=== PATIENT | male | born 1970 | race American Indian/Alaskan Native ===

== ENCOUNTER 2016-08-16 10:29 | Inpatient (IN) | payer MEDICAID, OTHER ==
[2016-08-16] MEDS ORDERED: Sodium Chloride 0.9% 1,000 ML IV ONE (10:55)
[2016-08-16 11:30] LABS: BASO # 0.1 K/uL (0.0-0.2); BASO % 0.9 % (0.0-2.0); EOS # 0.2 K/uL (0.0-0.7); EOS % 3.1 % (0.0-4.0); HEMATOCRIT 43.8 % (35.0-51.0); LYMPH # 2.3 K/uL (1.0-4.3); LYMPH % 30.1 % (20.0-40.0); MEAN CELL VOLUME 91.6 fL (80.0-94.0); MEAN CORPUSCULAR HEMOGLOBIN 30.4 pg (27.0-31.0); MEAN CORPUSCULAR HGB CONC 33.2 g/dL (33.0-37.0); MEAN PLATELET VOLUME 9.4 fL (7.2-11.7); MONO # 0.6 K/uL (0.0-0.8); NRBC % 0.1 % (0.0-2.0); RED CELL DISTRIBUTION WIDTH 13.8 % (11.5-14.5); WHITE BLOOD COUNT 7.7 K/uL (4.8-10.8)
[2016-08-16 11:38] LABS: RBC URINE < 1 /hpf (0-3); URINE BILIRUBIN NEGATIVE (NEGATIVE); URINE BLOOD NEGATIVE (NEGATIVE); URINE COLOR Yellow (YELLOW); URINE GLUCOSE (UA) NORMAL (Normal); URINE KETONE TRACE mg/dL (NEGATIVE); URINE LEUKOCYTE ESTERASE NEG Leu/uL (Negative); URINE PROTEIN NEGATIVE (NEGATIVE); URINE UROBILINOGEN NORMAL mg/dL (0.2-1.0); WBC URINE 1 /hpf (0-5)
[2016-08-16 11:42] LABS: CHLORIDE 102 mmol/L (98-107)
[2016-08-16 11:44] LABS: POTASSIUM 3.9 mmol/L (3.6-5.2); SODIUM 139 mmol/L (132-148)
[2016-08-16 11:45] LABS: BILIRUBIN,TOTAL 0.5 mg/dL (0.2-1.3); CARBON DIOXIDE 28 mmol/L (22-30); GFR AFRICAN-AMERICAN > 60
[2016-08-16 11:46] LABS: ALB/GLOB RATIO 1.4 (1.0-2.1); ALKALINE PHOSPHATASE 72 U/L (38-126); ALT/SGPT 38 U/L (21-72); AST/SGOT 46 U/L (17-59); BLOOD UREA NITROGEN 10 mg/dL (9-20); GLUCOSE,RANDOM 77 mg/dL (75-110); TOTAL PROTEIN 7.2 g/dL (6.3-8.3)
[2016-08-16 11:47] LABS: ALCOHOL SERUM < 10 mg/dl (0-10)
--- NOTE | 2016-08-16 13:02 | C.PDOC ---
History Of Present Illness 45 y/o male, with history of depression and seizures, presents to ED with complaint of seizure this morning. Patient admits to recent alcohol and marijuana use. Patient reports feeling increasingly depressed and stressed recently. He expressed in the past that he wanted to hurt himself. Denies suicidal plan or attempt. Patient states that he is complaint with Keppra. Time Seen by Provider: 08/16/16 10:50 Chief Complaint (Nursing): Seizure History Per: Patient History/Exam Limitations: no limitations Recent Seizure Activity Began: Hours Ago: Number Of Seizures: One Length Of Seizures (Duration): Unknown Post-ictal Period: No Past Medical History Reviewed: Historical Data, Nursing Documentation, Vital Signs Vital Signs: Last Vital Signs Temp 97.9 F 08/16/16 10:39 Pulse 83 08/16/16 13:13 Resp 20 08/16/16 13:13 BP 106/64 08/16/16 13:13 Pulse Ox 99 08/16/16 13:13 - Medical History PMH: Depression, HIV, Seizures, Sexually Transmitted Disease - [facility] Procedures GROUP PSYCHOTHERAPY (05/11/15) INDIVIDUAL PSYCHOTHERAPY, COGNITIVE-BEHAVIORAL (05/11/15) Family History: States: Unknown Family Hx - Social History Hx Tobacco Use: Yes Hx Alcohol Use: Yes Hx Substance Use: No - Immunization History Hx Tetanus Toxoid Vaccination: No Hx Influenza Vaccination: No Hx Pneumococcal Vaccination: No Review Of Systems Except As Marked, All Systems Reviewed And Found Negative. Constitutional: Negative for: Fever, Chills Cardiovascular: Negative for: Chest Pain Respiratory: Negative for: Cough Gastrointestinal: Negative for: Vomiting Neurological: Positive for: Seizures Psych: Positive for: Depression, Suicidal ideation Physical Exam - Physical Exam Appears: Non-toxic, No Acute Distress, Other (depressed mood) Skin: Warm, Dry Head: Atraumatic, Normacephalic Eye(s): bilateral: Normal Inspection, EOMI Nose: Normal, No Flaring Oral Mucosa: Moist Tongue: Normal Appearing, No Bite Lips: Normal Appearing Teeth: Normal Dentition Throat: Normal, No Erythema, No Exudate Neck: Normal ROM Chest: Symmetrical Cardiovascular: Rhythm Regular Respiratory: Normal Breath Sounds, No Rales, No Rhonchi, No Wheezing Gastrointestinal/Abdominal: Soft, No Tenderness, No Guarding, No Rebound Back: Normal Inspection Extremity: Normal ROM, Capillary Refill (< 2 sec. ) Neurological/Psych: Oriented x3, Normal Speech Gait: Steady ED Course And Treatment - Laboratory Results Result Diagrams: 08/16/16 11:07 08/16/16 11:07 Lab Interpretation: No Acute Changes ECG: Interpreted By Me ECG Rhythm: Sinus Rhythm ECG Interpretation: No Acute Changes Interpretation Of ECG: mild right axis deviation Rate From EC (bpm) O2 Sat by Pulse Oximetry: 95 (RA) Pulse Ox Interpretation: Normal Medical Decision Making Medical Decision Making: Patient reports depression and seizure. Patient is alert and oriented has no obvious signs of trauma or injury and not postictal. bag shop worker Jeevan at bedside and states patient is suicidal. Will place on 1:1 Plan: * Labs * EKG * crisis eval Progress: Crisis aware of patient. Pt placed on 1:1 observation in ER. Labs ordered and reviewed. In my clinical judgment patient is medically cleared and stable for psychiatric admission. home support worker contacted for evaluation. As per CW patient is to be admitted to Dr Bradshaw Disposition - Disposition Disposition: HOME/ ROUTINE Disposition Time: 13:30 Condition: STABLE - POA Present On Arrival: None - Clinical Impression Clinical Impression: Seizure disorder, Depression, Substance abuse - PA / [employer] F[employer] / Resident Statement MD/DO has reviewed & agrees with the documentation as recorded. - Scribe Statement The provider has reviewed the documentation as recorded by the John Anderson Provider Scribe Attestation: All medical record entries made by the Scribe were at my direction and personally dictated by me. I have reviewed the chart and agree that the record accurately reflects my personal performance of the history, physical exam, medical decision making, and the department course for this patient. I have also personally directed, reviewed, and agree with the discharge instructions and disposition. Decision To Admit - Pt Status Changed To: Hospital Disposition Of: Inpatient - Admit Certification Admit to Inpatient:: After my assessment, the patient will require hospitalization for at least two midnights. This is because of the severity of symptoms shown, intensity of services needed, and/or the medical risk in this patient being treated as an outpatient. - InPatient: Physician Admission Certification: I certify that this patient requires 2 or more midnights of care for the following reason:: Patient to be admitted for depression, h.o seizure and substance abuse - . Bed Request Type: Psychiatry Admitting Physician: Som Bradshaw Patient Diagnosis: Seizure disorder, Depression, Substance abuse
[2016-08-16 13:33] VITALS: O2SAT 95
[2016-08-17] MEDS ORDERED: Ergocalciferol 50,000 Intl Units Cap PO SCH ×2 (10:00→14:30)
[2016-08-17] MEDS ORDERED: Vitamin B Complex/Vitamin C Tab PO SCH (10:00)
[2016-08-17] MEDS ORDERED: Emtricitabine-Tenofovir 200 mg-300 mg Tab PO SCH (10:00)
[2016-08-17 13:02] VITALS: RESP 19; TEMP 98
--- NOTE | 2016-08-17 15:36 | PCM.PSYCH ---
Initial Psychiatric Evaluation - Initial Psychiatric Evaluation Type of Admission: Voluntary Legal Status: Capacity Chief Complaint (in patient's own words): I was feeling depressed and suicidal History of Present Illness and Precipitating Events: This is a 45 years old male who is a currently homeless and unemployed, came to the hospital after abusing PCP, depressed mood and suicidal ideation. Patient reports a long history of abusing PCP, cocaine and depression. Patient denies any history of inpatient psychiatric hospitalization and denies any follow-up with any psychiatrist. Patient reports that yesterday he abused more than 20 to cocaine mixed with PCP, became increasingly depressed and developed suicidal ideation, so came to the hospital to get help. Patient reports of depressed, and irritable mood. Reports feelings of hopelessness and helplessness and poor appetite. He also reports of racing of thoughts and flight of ideas and poor concentration. However he denies any auditory hallucinations, visual hallucinations or any delusions. Current Medications: Active Medications Generic Name Dose Route Start Last Admin Trade Name Freq PRN Reason Stop Dose Admin Benztropine Mesylate 2 mg 08/16/16 17:19 Cogentin PO Q6 PRN Extra Pyramidal Symptoms Dicyclomine HCl 10 mg 08/16/16 17:19 Bentyl PO Q6 PRN Muscle spasm Diphenhydramine HCl 50 mg 08/16/16 17:19 Benadryl PO Q6 PRN Extra Pyramidal Symptoms Emtricitabine/Tenofovir 1 tab 08/17/16 10:00 08/17/16 11:13 Truvada 200 Mg-300 Mg PO 1 tab DAILY ARIADNA Administration Ergocalciferol 1 cap 08/17/16 14:30 08/17/16 15:07 Drisdol 50,000 Intl Units Cap PO Not Given QWK ARIADNA Haloperidol 5 mg 08/16/16 17:19 Haldol PO Q8 PRN Moderate Agitation Haloperidol Lactate 5 mg 08/16/16 17:19 Haldol IM Q8 PRN Moderate Agitation Levetiracetam 500 mg 08/16/16 18:00 08/17/16 11:08 Keppra PO 500 mg BID ARIADNA Administration Quetiapine Fumarate 100 mg 08/16/16 22:00 08/16/16 21:35 Seroquel PO 100 mg HS ARIADNA Administration Raltegravir 400 mg 08/16/16 18:00 08/17/16 11:13 Isentress PO 400 mg BID ARIADNA Administration Trazodone HCl 100 mg 08/16/16 22:00 08/16/16 21:35 Desyrel PO 100 mg HS ARIADNA Administration Vitamin B Complex/Vitamin C 1 tab 08/17/16 10:00 08/17/16 11:13 Berocca PO 1 tab DAILY ARIADNA Administration Past Psychiatric History - Past Psychiatric History Previous Treatment History: None Pertinent Medical Hx (Current Medical&Sleep Prob, Allergies): Allergies Allergy/AdvReac Type Severity Reaction Status Date / Time No Known Allergies Allergy Verified 04/02/16 10:56 Cholecalciferol [Vitamin D 1000 IU] 5,000 iu PO DAILY #0 tab 05/14/15 Naproxen Sodium [Naproxen Sodium ER] 375 mg PO BID PRN 01/20/16 traZODone [Desyrel] 50 mg PO DAILY 01/20/16 Emtricitabine/Tenofovir (Tdf) [Truvada 100 mg-150 mg Tablet] 1 each PO DAILY Levetiracetam [Keppra] 1 tab PO BID #60 tablet 05/14/16 levETIRAcetam [Keppra] 500 mg PO BID 05/14/16 Review of Systems - Review of Systems All systems: reviewed and no additional remarkable complaints except - Psychiatric Psychiatric: Anxiety, Irritability, Suicidal Ideation Mental Status Examination - Personal Presentation Personal Presentation: Looks stated age - Affect Affect: Constricted, Depressed - Motor Activity Motor Activity: Calm - Reliability in Providing Information Reliability in Providing Information: Good - Speech Speech: Organized - Mood Mood: Depressed, Anxious - Formal Thought Process Formal Thought Process: No Impairment - Obsessions/Compulsions Obsessions: No Compulsions: No - Cognitive Functions Orientation: Person, Place, Situation, Time Sensorium: Alert Attention/Concentration: Attentive Abstract Thinking: Harold Estimate of Intelligence: Below average Judgement: Imparied, as evidence by: Poor judgement, Imparied, as evidence by: Lack of insight into illness - Risk Risk: Diminished functioning - Strength & Assets Inventory Strength & Assets Inventory: Cooperative DSM 5 DX - DSM 5 DSM 5 Diagnosis: Bipolar disorder mixed severe without psychotic features PCP use disorder severe Cocaine use disorder moderate - Recommended/Plan of Treatment Treatment Recommendations and Plan of Treatment: Bipolar disorder mixed severe without psychotic features CBT Psychoeducation Supportive therapy, group therapy, individual therapy Keppra 500 mg by mouth twice a day Trazodone 50 mg by mouth daily at bedtime Seroquel 100 mg by mouth daily at bedtime PCP use disorder severe Monitor signs and symptoms Use NV for abstinence Cocaine use disorder moderate Monitor signs and symptoms Use NV for abstinence - Smoking Cessation Smoking Cessation Initiated: No
[2016-08-17 15:50] VITALS: BP 109/64; PULSE 65
--- NOTE | 2016-08-18 22:40 | PCM.PYCHDC ---
Mental Status Examination - Mental Status Examination Orientation: Person, Place, Situation, Time Memory: Intact Mood: Neutral Affect: Constricted Speech: Soft Attention: WNL Concentration: WNL Association: WNL Fund of Knowledge: WNL Formal Thought Process: No Impairment Description of patient's judgement and insight: good, fair Psychotic Thoughts and Behaviors: denies any AVH Suicidal Ideation: No Current Homicidal Ideation?: No Discharge Summary - Discharge Note Reason for Hospitalization: This is a 45 years old male who is a currently homeless and unemployed, came to the hospital after abusing PCP, depressed mood and suicidal ideation. Patient reports a long history of abusing PCP, cocaine and depression. Patient denies any history of inpatient psychiatric hospitalization and denies any follow-up with any psychiatrist. Patient reports that yesterday he abused more than 20 to cocaine mixed with PCP, became increasingly depressed and developed suicidal ideation, so came to the hospital to get help. Patient reports of depressed, and irritable mood. Reports feelings of hopelessness and helplessness and poor appetite. He also reports of racing of thoughts and flight of ideas and poor concentration. However he denies any auditory hallucinations, visual hallucinations or any delusions. Consultations:: List each consultation separately and include: 1. Reason for request. 2. Findings. 3. Follow-up Summary of Hospital Course include:: 1. Description of specific treatment plan utilized for patients during their course of treatmen. 2. Summarize the time- course for resolution of acute symptoms and/or regressed behaviors. 3. Describe issues identified and worked on during hospitalization. 4. Describe medication utilized. 5. Describe medical problems identified and treated. 6. Reassessment of suicide risk Summary of Hospital Course: During the course of his stay, patient (pt) started progressively improving and he no longer remained irritable, depressed, and agitated. His mood was improved and he started attending groups and meetings and started socializing. However, he signed a 48 hours notice and requested to be discharged. Patient denied any feelings of hopelessness, helplessness, and worthlessness, denied any problem with the sleep or appetite, denied suicidal ideation or homicidal ideation. Pt denied any auditory or visual hallucinations. He reported improvement in the withdrawal symptoms Some changes were made in his current medications and patient was discharged on following medications. He tolerated these medications very well and denied any side effects. - Final Diagnosis (DSM 5) Condition upon Discharge: STABLE DSM 5: Bipolar disorder mixed severe without psychotic features PCP use disorder severe Cocaine use disorder moderate Disposition: HOME/ ROUTINE Follow-up Treatment Plan: Education: Pt was educated and counseled about the risks and benefits of taking and not taking medications. Pt was educated and counseled about the risks of drinking and abusing drugs. Pt was educated and counseled to go to the ER or call 911 if pt develop suicidal ideation or homicidal ideation, worsening of symptoms or severe side effects of the meds. Prescriptions/Medication Reconciliation: levETIRAcetam [Keppra] 500 mg PO BID #60 tab QUEtiapine [Seroquel] 100 mg PO HS #30 tab - Smoking Cessation Smoking Cessation Medication prescribed: No - Antipsychotic Medications Pt discharged on 2 or more routine antipsychotic medications: No
--- NOTE | 2016-08-21 18:16 | CARD ---
APPROVED REPORT EKG Measurement Heart [id number] <Conclusion> Normal sinus rhythm Normal ECG
== END 2016-08-18 11:40 | disposition home or self-care (01) | DRG 430 ==
LOC: C.ER 10:29 → C.5E 13:28
PROVIDERS: ADMIT Psychiatry & Neurology Psychiatry; ATTEND Psychiatry & Neurology Psychiatry
PROC: GZHZZZZ Group Psychotherapy (ICD-10-PCS; principal; 2016-08-16)
PROC: GZ56ZZZ Individual Psychotherapy, Supportive (ICD-10-PCS; 2016-08-16)
DX: F31.63 Bipolar disorder, current episode mixed, severe, without psychotic features (principal); R45.851 Suicidal ideations; G40.909 Epilepsy, unspecified, not intractable, without status epilepticus; F14.90 Cocaine use, unspecified, uncomplicated; F16.10 Hallucinogen abuse, uncomplicated; Z87.891 Personal history of nicotine dependence; Z59.0 Homelessness; Z21 Asymptomatic human immunodeficiency virus [HIV] infection status

== ENCOUNTER 2016-09-27 15:10 | Emergency (ER) | payer MEDICAID, OTHER ==
[2016-09-27 15:23] VITALS: RESP 18; TEMP 98.7
[2016-09-27] MEDS ORDERED: Sodium Chloride 0.9% 1,000 ML IV ONE (15:25)
[2016-09-27 15:44] LABS: BASO # 0.1 K/uL (0.0-0.2); EOS # 0.2 K/uL (0.0-0.7); EOS % 2.2 % (0.0-4.0); HEMATOCRIT 43.9 % (35.0-51.0); LYMPH # 2.1 K/uL (1.0-4.3); LYMPH % 19.3 % (20.0-40.0); MEAN CELL VOLUME 93.1 fL (80.0-94.0); MEAN CORPUSCULAR HEMOGLOBIN 30.5 pg (27.0-31.0); MEAN CORPUSCULAR HGB CONC 32.8 g/dL (33.0-37.0); MEAN PLATELET VOLUME 10.3 fL (7.2-11.7); MONO # 0.9 K/uL (0.0-0.8); MONO % 8.6 % (0.0-10.0); RED CELL DISTRIBUTION WIDTH 14.7 % (11.5-14.5); WHITE BLOOD COUNT 10.7 K/uL (4.8-10.8)
[2016-09-27 16:03] LABS: CHLORIDE 111 mmol/L (98-107)
[2016-09-27 16:04] LABS: RBC URINE 5 /hpf (0-3); URINE BILIRUBIN NEGATIVE (NEGATIVE); URINE BLOOD 1+ (NEGATIVE); URINE COLOR Yellow (YELLOW); URINE GLUCOSE (UA) NORMAL (Normal); URINE HYALINE CAST 0-2 /lpf (0-2); URINE KETONE NEGATIVE (NEGATIVE); URINE LEUKOCYTE ESTERASE NEG Leu/uL (Negative); URINE PROTEIN 1+ mg/dL (NEGATIVE); URINE UROBILINOGEN NORMAL mg/dL (0.2-1.0); WBC URINE 3 /hpf (0-5)
[2016-09-27 16:04] LABS: POTASSIUM 4.3 mmol/L (3.6-5.2); SODIUM 143 mmol/L (132-148)
[2016-09-27 16:06] LABS: ALB/GLOB RATIO 1.2 (1.0-2.1); ALKALINE PHOSPHATASE 67 U/L (38-126); AST/SGOT 43 U/L (17-59); BILIRUBIN,TOTAL 0.8 mg/dL (0.2-1.3); BLOOD UREA NITROGEN 10 mg/dL (9-20); CARBON DIOXIDE 22 mmol/L (22-30); GFR AFRICAN-AMERICAN > 60; TOTAL PROTEIN 7.3 g/dL (6.3-8.3)
[2016-09-27 16:07] LABS: ALCOHOL SERUM < 10 mg/dl (0-10); ALT/SGPT 20 U/L (21-72); CALCIUM 8.5 mg/dl (8.6-10.4); GLUCOSE,RANDOM 74 mg/dL (75-110); MAGNESIUM 2.3 mg/dL (1.6-2.3)
[2016-09-27] MEDS ORDERED: levETIRAcetam 500 MG in Sodium Chloride 0.9% 100 ML IVPB STA (19:23)
[2016-09-27] MEDS ORDERED: Sodium Chloride 0.9% 100 ML ONE (19:46)
[2016-09-27] MEDS ORDERED: Ketamine 50 mg/ml Inj (10 ml) ONE (19:46)
--- NOTE | 2016-09-27 20:49 | CT ---
EXAM: CT Head Without Intravenous Contrast CLINICAL HISTORY: 45 years old, male; Signs and symptoms; Altered mental status/memory loss and syncope and collapse; Additional info: Seizures, AMS TECHNIQUE: Axial computed tomography images of the head/brain without intravenous contrast. This CT exam was performed using one or more of the following dose reduction techniques: automated exposure control, adjustment of the mA and/or kV according to patient size, and/or use of iterative reconstruction technique. EXAM DATE/TIME: 09/27/2016 7:54 PM COMPARISON: Prior images are not available for review. Correlation is made with a reports dated 01/20/16 and 04/02/16 FINDINGS: Brain: There is prominence of sulci, gyri and ventricles. There is no midline shift. There are no intra-axial or extra axial mass lesions or areas of hemorrhage. There is right temporal parietal encephalomalacia. There is a coarse calcification in the left basal ganglia. Lawson-white differentiation is maintained. Ventricles: See above Bony structures: There is an old right parietal craniotomy defect. Soft tissues: unremarkable Sinuses: There is no acute sinusitis. Ears and mastoids: Middle ears and mastoids unremarkable. Orbits: Orbital contents are unremarkable. IMPRESSION: Prior right craniotomy with right temporoparietal encephalomalacia, mild atrophy, no acute intracranial abnormality
[2016-09-27 21:08] VITALS: O2SAT 99
--- NOTE | 2016-09-27 22:14 | C.PDOC ---
Time Seen by Provider: 09/27/16 15:25 Chief Complaint (Nursing): Altered Mental Status History Per: Patient, EMS History/Exam Limitations: Clinical Condition Onset Of Symptoms: Cannot Confirm Onset (today) Current Symptoms Are (Timing): Still Present Usual Baseline: Alert Oriented Exacerbating Factor(s): Drug Use Severity: Moderate Additional History Per: Prior Records Associated Symptoms: Seizure, Disoriented, Confused Past Medical History Reviewed: Historical Data, Nursing Documentation, Vital Signs Vital Signs: Last Vital Signs Temp 98.7 F 09/27/16 18:43 Pulse 64 09/27/16 20:49 Resp 18 09/27/16 20:49 BP 135/84 09/27/16 20:49 Pulse Ox 99 09/27/16 22:15 - Medical History PMH: Depression, HIV, Seizures, Sexually Transmitted Disease - [facility] Procedures GROUP PSYCHOTHERAPY (08/16/16) INDIVIDUAL PSYCHOTHERAPY, COGNITIVE-BEHAVIORAL (05/11/15) INDIVIDUAL PSYCHOTHERAPY, SUPPORTIVE (08/16/16) Family History: States: Unknown Family Hx - Social History Hx Tobacco Use: Yes Hx Alcohol Use: Yes Hx Substance Use: Yes (OBTAINED FROM HISTORY) - Immunization History Hx Tetanus Toxoid Vaccination: No Hx Influenza Vaccination: No Hx Pneumococcal Vaccination: No Review Of Systems Review Of Systems: ROS cannot be obtained secondary to pt's inabilty to answer questions. Physical Exam - Physical Exam Appears: Confused Skin: Normal Color, Warm, Dry Head: Atraumatic, Normacephalic Eye(s): bilateral: PERRL (dilated) Neck: Normal ROM, No Midline Cervical Tenderness, No Step Off Deformity, Supple Cardiovascular: Rhythm Regular Respiratory: Normal Breath Sounds, No Accessory Muscle Use Gastrointestinal/Abdominal: Soft Extremity: Normal ROM, No Deformity Neurological/Psych: Inappropriate Response To Command, Other (Moving all extremities) ED Course And Treatment - Laboratory Results Result Diagrams: 09/27/16 15:38 09/27/16 15:38 Lab Interpretation: No Acute Changes O2 Sat by Pulse Oximetry: 99 Pulse Ox Interpretation: Normal - CT Scan/US CT head Other Rad Studies (CT/US): Read By Radiologist, Radiology Report Reviewed CT/US Interpretation: IMPRESSION: Prior right craniotomy with right temporoparietal encephalomalacia, mild. atrophy, no acute intracranial abnormality Progress Note: Pt is now AAOx3 and wants to go home. Reassessment Condition: Improved Progress - Interventions Interventions:: Observation, Intravenous fluid - Medications Administered Intravenous: Other (Ativan. Keppra.) - Data Reviewed Data Reviewed: Lab, Diagnostic imaging, Old records - Patient Status Patient status: Mostly improved - Continuity of Care Discussed patient case with:: Patient, Family-HIPPA compliant, ED Nurse - Patient Plan Patient Plan: Discharge, F/U with PCP, Continue present meds Disposition Counseled Patient/Family Regarding: Studies Performed, Diagnosis, Need For Followup - Disposition Disposition: HOME/ ROUTINE Disposition Time: 22:36 Condition: IMPROVED Additional Instructions: Avoid using illicit drugs. Take your medications as prescribed. Follow up with your doctor within 1-2 days. Return to the ER if you develop worsening of symptoms or if you have any other concerns. Instructions: Recurrent Seizures in Adults (ED), Polysubstance Abuse (ED) - Clinical Impression Clinical Impression: Seizure disorder, Drug abuse
[2016-09-27 22:37] VITALS: BP 110/77; PULSE 77
== END 2016-09-27 22:49 | disposition home or self-care (01) ==
LOC: C.ER 15:10
DX: G40.909 Epilepsy, unspecified, not intractable, without status epilepticus (principal); F19.10 Other psychoactive substance abuse, uncomplicated
CPT/HCPCS: 70450; 80053; 80185; 80320; 80324; 80345; 80346; 80349; 80353; 80358; 80361; 81001; 82948; 83735; 83992; 85025; 96374; 99285; J1953; J2060

== ENCOUNTER 2016-09-28 01:32 | Emergency (ER) | payer OTHER ==
--- NOTE | 2016-09-28 01:56 | C.PDOC ---
History Of Present Illness Patient presents to the ED after having a seizure while at home prior to arrival. Patient's sister states she heard a noise and found the patient on the floor having a seizure. Patient has a known history of seizures,on medications for seizures. Pt was seen in the ED yesterday ,had a negative CT scan , and was positive for PCP and cocaine . Time Seen by Provider: 09/28/16 01:56 Chief Complaint (Nursing): Seizure History Per: Patient History/Exam Limitations: no limitations Recent Seizure Activity Began: Just Before Arrival Number Of Seizures: One Length Of Seizures (Duration): Unknown Quality Of Seizure: Generalized Post-ictal Period: Duration Unknown Severity: None Pain Scale Rating Of: 0 Recent travel outside of the [place]: No Additional History Per: Family (sister ) Past Medical History Reviewed: Historical Data, Nursing Documentation, Vital Signs Vital Signs: Last Vital Signs Temp 98.7 F 09/28/16 01:35 Pulse 75 09/28/16 01:35 Resp 13 09/28/16 01:35 BP 109/70 09/28/16 01:35 Pulse Ox 98 09/28/16 03:27 - Medical History PMH: Depression, HIV, Seizures, Sexually Transmitted Disease Denies: Chronic Kidney Disease - [facility] Procedures GROUP PSYCHOTHERAPY (08/16/16) INDIVIDUAL PSYCHOTHERAPY, COGNITIVE-BEHAVIORAL (05/11/15) INDIVIDUAL PSYCHOTHERAPY, SUPPORTIVE (08/16/16) Family History: States: No Known Family Hx - Social History Hx Tobacco Use: Yes Hx Alcohol Use: Yes Hx Substance Use: Yes (OBTAINED FROM HISTORY) - Immunization History Hx Tetanus Toxoid Vaccination: No Hx Influenza Vaccination: No Hx Pneumococcal Vaccination: No Review Of Systems Constitutional: Negative for: Fever, Chills Eyes: Negative for: Vision Change ENT: Negative for: Ear Pain, Ear Discharge Cardiovascular: Negative for: Chest Pain, Palpitations Respiratory: Negative for: Cough, Shortness of Breath Gastrointestinal: Negative for: Nausea, Vomiting, Abdominal Pain, Diarrhea Musculoskeletal: Negative for: Back Pain Skin: Negative for: Rash, Lesions, Bruising Neurological: Positive for: Seizures. Negative for: Headache Psych: Negative for: Anxiety Physical Exam - Physical Exam Appears: Non-toxic, No Acute Distress, Other (No evidence of trauma ) Skin: Warm, Dry Head: Normacephalic, No Swelling, Other (No crepitus ) Eye(s): bilateral: Normal Inspection, PERRL, EOMI Ear(s): Bilateral: Normal Oral Mucosa: Moist Tongue: Normal Appearing, No Bite Neck: Trachea Midline, Supple Chest: Symmetrical, No Deformity Cardiovascular: Rhythm Regular Respiratory: No Rales, No Rhonchi, No Wheezing Gastrointestinal/Abdominal: Soft, No Tenderness, No Distention, No Guarding, No Rebound Extremity: Normal ROM, No Tenderness Extremity: Bilateral: Normal Color And Temperature Neurological/Psych: Oriented x3, Normal Speech Gait: Unable To Assess ED Course And Treatment - Laboratory Results Result Diagrams: 09/28/16 02:14 09/28/16 02:14 O2 Sat by Pulse Oximetry: 98 (room air ) Pulse Ox Interpretation: Normal Progress Note: 3:25 am pt sith seizure. pulled iv out 2 mg im ativan given Disposition Counseled Patient/Family Regarding: Studies Performed, Diagnosis - Disposition Disposition Time: 01:56 Condition: FAIR - Clinical Impression Clinical Impression: Cocaine use, Substance abuse, Seizure - Scribe Statement The provider has reviewed the documentation as recorded by the Scribdalia Mattson All medical record entries made by the Leslieibe were at my direction and personally dictated by me. I have reviewed the chart and agree that the record accurately reflects my personal performance of the history, physical exam, medical decision making, and the department course for this patient. I have also personally directed, reviewed, and agree with the discharge instructions and disposition. Physician Patient Turnover Patient Signed Over To: Kayla Michelle Handoff Comments: pending re-evaluation and disposition
[2016-09-28] MEDS ORDERED: Sodium Chloride 0.9% 1,000 ML IV ONE (01:57)
[2016-09-28] MEDS ORDERED: Sodium Chloride 0.9% 1,000 ML ONE (02:09)
[2016-09-28 02:18] LABS: BASO # 0.1 K/uL (0.0-0.2); BASO % 0.9 % (0.0-2.0); EOS # 0.1 K/uL (0.0-0.7); EOS % 0.9 % (0.0-4.0); HEMOGLOBIN 13.8 g/dL (12.0-18.0); LYMPH # 2.4 K/uL (1.0-4.3); LYMPH % 18.3 % (20.0-40.0); MEAN CELL VOLUME 91.9 fL (80.0-94.0); MEAN CORPUSCULAR HEMOGLOBIN 30.3 pg (27.0-31.0); MEAN PLATELET VOLUME 10.1 fL (7.2-11.7); MONO # 1.1 K/uL (0.0-0.8); MONO % 8.3 % (0.0-10.0); NEUT # 9.2 K/uL (1.8-7.0); NEUT % 71.6 % (50.0-75.0); RBC 4.55 Mil/uL (4.40-5.90); RED CELL DISTRIBUTION WIDTH 14.2 % (11.5-14.5); WHITE BLOOD COUNT 12.9 K/uL (4.8-10.8)
[2016-09-28 02:32] LABS: ALBUMIN 4.1 g/dL (3.5-5.0)
[2016-09-28 02:34] LABS: GFR AFRICAN-AMERICAN > 60; GFR NON-AFRICAN AMERICAN > 60
[2016-09-28 02:35] LABS: ALB/GLOB RATIO 1.2 (1.0-2.1); ALT/SGPT 36 U/L (21-72); AST/SGOT 35 U/L (17-59); BLOOD UREA NITROGEN 13 mg/dL (9-20)
[2016-09-28 08:00] VITALS: TEMP 98.1
[2016-09-28 08:32] LABS: URINE BILIRUBIN NEGATIVE (NEGATIVE); URINE BLOOD NEGATIVE (NEGATIVE); URINE CLARITY Clear (Clear); URINE COLOR Yellow (YELLOW); URINE GLUCOSE (UA) NORMAL (Normal); URINE LEUKOCYTE ESTERASE NEG Leu/uL (Negative); URINE NITRATE NEGATIVE (NEGATIVE); URINE PROTEIN NEGATIVE (NEGATIVE); URINE UROBILINOGEN NORMAL mg/dL (0.2-1.0)
[2016-09-28 08:51] LABS: BARBITURATES, UR NEGATIVE (NEGATIVE); BENZODIAZEPINES, UR NEGATIVE (NEGATIVE)
[2016-09-28 09:36] LABS: OPIATES, UR NEGATIVE (NEGATIVE)
[2016-09-28 09:56] VITALS: BP 104/68; PULSE 73; RESP 17; O2SAT 99
[2016-09-28 10:00] LABS: PHENCYCLIDINE, UR POSITIVE (NEGATIVE)
== END 2016-09-28 10:17 | disposition home or self-care (01) ==
LOC: C.ER 01:32
DX: G40.909 Epilepsy, unspecified, not intractable, without status epilepticus (principal); F14.10 Cocaine abuse, uncomplicated
CPT/HCPCS: 80053; 80320; 80324; 80345; 80346; 80349; 80353; 80358; 80361; 81001; 82948; 83992; 85025; 92610; 96360; 96372; 99285; G8996; G8997; G8998; J2060; J7040

== ENCOUNTER 2017-09-02 11:44 | Observation (INO) | payer MEDICAID, OTHER ==
[2017-09-02] MEDS ORDERED: Lactated Ringer's 1,000 ML IV STA (13:10)
--- NOTE | 2017-09-02 13:10 | C.PDOC ---
History Of Present Illness 46-year-old male, PMHx includes Seizures (on Keppra), and cocaine abuse, presents to the emergency department with complaints of two episodes of witnessed seizure today. Patient states he normally takes Keppra for his seizures. He denies any chest pain, sts he is taking Keppra every day. Patient denies any drug use. All other Hx limited due to post-ictal state. Time Seen by Provider: 09/02/17 12:41 Chief Complaint (Nursing): Seizure History Per: Patient History/Exam Limitations: clinical condition Number Of Seizures: Multiple (2) Past Medical History Reviewed: Historical Data, Nursing Documentation, Vital Signs Vital Signs: Last Vital Signs Temp 98.4 F 09/02/17 11:50 Pulse 73 09/02/17 17:07 Resp 18 09/02/17 17:07 BP 131/80 09/02/17 17:07 Pulse Ox 98 09/02/17 17:07 - Medical History PMH: Depression, HIV, Seizures, Sexually Transmitted Disease - [facility] Procedures GROUP PSYCHOTHERAPY (08/16/16) INDIVIDUAL PSYCHOTHERAPY, COGNITIVE-BEHAVIORAL (05/11/15) INDIVIDUAL PSYCHOTHERAPY, SUPPORTIVE (08/16/16) Family History: States: No Known Family Hx - Social History Hx Tobacco Use: Yes Hx Alcohol Use: No Hx Substance Use: No - Immunization History Hx Tetanus Toxoid Vaccination: No Hx Influenza Vaccination: No Hx Pneumococcal Vaccination: No Review Of Systems Constitutional: Negative for: Fever, Chills Cardiovascular: Negative for: Chest Pain, Palpitations Respiratory: Negative for: Shortness of Breath Gastrointestinal: Negative for: Nausea, Vomiting Neurological: Positive for: Seizures. Negative for: Weakness, Numbness, Headache, Dizziness Physical Exam - Physical Exam Appears: Non-toxic, No Acute Distress, Other Skin: Normal Color, Warm, Dry, No Rash Head: Atraumatic, Normacephalic Eye(s): bilateral: Normal Inspection, PERRL, EOMI Nose: Normal Oral Mucosa: Moist Lips: Normal Appearing Neck: Normal ROM Cardiovascular: Rhythm Regular, No Murmur Respiratory: Normal Breath Sounds, No Accessory Muscle Use Gastrointestinal/Abdominal: Soft, No Tenderness Back: Normal Inspection Extremity: Normal ROM, No Deformity, No Swelling Neurological/Psych: Oriented x3, Normal Speech (No focal deficit), Other ((+) post-ictal) ED Course And Treatment - Laboratory Results Result Diagrams: 09/02/17 13:31 09/02/17 13:31 ECG Rhythm: Sinus Rhythm ECG Interpretation: No Acute Changes Rate From EC O2 Sat by Pulse Oximetry: 99 (RA) Pulse Ox Interpretation: Normal - Other Rad CXR X-Ray: Viewed By Me, Read By Radiologist Interpretation: Accession No. : [id number]. Patient Name / ID : BARBRA COLON / [id number]. Exam Date : 09/02/2017 13:26:44 ( Approved ). Study Comment : Sex / Age : M / 46Y. Creator : Reggie Cruz MD. Dictator : Reggie Cruz MD. Cement Despatch Operator : Measurement Superintendent : Reggie Cruz MD. Approver2 : Report Date : 09/02/2017 14:07:36. My Comment : . Chest x- ray single frontal view. History: Seizure. Comparison: 01/20/2016. Findings: Mild to moderate venous congestion. Right hilar prominence. Patchy increased markings at the left lung base. Large ectatic aorta. Mild cardiomegaly. Impression: Mild to moderate venous congestion. Right hilar prominence. Patchy increased markings at the left lung base. Large ectatic aorta. Mild cardiomegaly. - CT Scan/US CT Head Other Rad Studies (CT/US): Read By Radiologist, Radiology Report Reviewed CT/US Interpretation: Accession No. : [id number]. Patient Name / ID : BARBRA COLON / [id number]. Exam Date : 09/02/2017 13:43:10 ( Approved ). Study Comment : Sex / Age : M / 46Y. Creator : Reggie Cruz MD. Dictator : Reggie Cruz MD. Cement Despatch Operator : Measurement Superintendent : Reggie Cruz MD. Approver2 : Report Date : 09/02/2017 14:02:57. My Comment : . PROCEDURE: CT HEAD WITHOUT CONTRAST. HISTORY: seizure. COMPARISON: 2016. TECHNIQUE: Axial computed tomography images were obtained through the head/brain without intravenous contrast. Radiation dose: Total exam DLP = 932 mGy-cm. This CT exam was performed using one or more of the following dose reduction techniques: Automated exposure control, adjustment of the mA and/or kV according to patient size, and/or use of iterative reconstruction technique. FINDINGS: HEMORRHAGE: No intracranial hemorrhage. BRAIN: Persistent right temporal parietal encephalomalacia. Persistent coarse calcification in the left basal ganglia. VENTRICLES: Unremarkable. No hydrocephalus. CALVARIUM: Old right parietal craniotomy defect. PARANASAL SINUSES: Prominent mucosal opacification of the bilateral maxillary sinuses with milder opacification of the ethmoid air cells. MASTOID AIR CELLS: Unremarkable as visualized. No inflammatory changes. OTHER FINDINGS: None. IMPRESSION: Prior right craniotomy with right temporal parietal encephalomalacia with mild atrophy. No acute intracranial abnormality. Sinus mucosal disease. Additional findings as above. If symptoms persists, consider correlation with MRI. Progress Note: Patient's drug screen was positive for cocaine. Case was d/w who accepted patient to his service for observation. Medical Decision Making Medical Decision Making: Impression Seizure Prior Visits Notes and records from previous visits were reviewed. Patient sneen in ED on and 09/27/16 for same complaint, had head CT and bloodwork was (+) cocaine and PCP Plan: * CT Head * EKG * Chest X-Ray * Bloodwork * UDS/UA * Ativan, Tylenol * Reassess and Disposition Disposition - Disposition Disposition: HOSPITALIZED Disposition Time: 18:44 Condition: FAIR Forms: [employer] (Kenyan) - Clinical Impression Clinical Impression: Cocaine use, Recurrent seizures - Scribe Statement The provider has reviewed the documentation as recorded by the Scribe (Daren Cuevas) All medical record entries made by the Scribe were at my direction and personally dictated by me. I have reviewed the chart and agree that the record accurately reflects my personal performance of the history, physical exam, medical decision making, and the department course for this patient. I have also personally directed, reviewed, and agree with the discharge instructions and disposition. Decision To Admit - Pt Status Changed To: Hospital Disposition Of: Observation - . Bed Request Type: Regular Admitting Physician: Franki Nguyen Patient Diagnosis: Cocaine use, Recurrent seizures
[2017-09-02 13:36] LABS: BASO % 0.4 % (0.0-2.0); EOS # 0.1 K/uL (0.0-0.7); EOS % 1.1 % (0.0-4.0); HEMOGLOBIN 13.7 g/dL (12.0-18.0); LYMPH # 1.6 K/uL (1.0-4.3); LYMPH % 15.4 % (20.0-40.0); MEAN CORPUSCULAR HGB CONC 34.2 g/dL (33.0-37.0); MEAN PLATELET VOLUME 10.2 fL (7.2-11.7); MONO # 0.6 K/uL (0.0-0.8); NEUT # 8.2 K/uL (1.8-7.0); NEUT % 77.1 % (50.0-75.0); NRBC % 0.1 % (0.0-2.0); RBC 4.71 Mil/uL (4.40-5.90); RED CELL DISTRIBUTION WIDTH 14.8 % (11.5-14.5); WHITE BLOOD COUNT 10.6 K/uL (4.8-10.8)
[2017-09-02 13:38] LABS: MEAN CELL VOLUME 84.7 fL (80.0-94.0)
[2017-09-02 13:54] LABS: ALB/GLOB RATIO 1.2 (1.0-2.1); ALBUMIN 4.2 g/dL (3.5-5.0); ALT/SGPT 31 U/L (21-72); AST/SGOT 38 U/L (17-59); BLOOD UREA NITROGEN 11 mg/dL (9-20); CALCIUM 8.8 mg/dl (8.6-10.4); GFR AFRICAN-AMERICAN > 60; GFR NON-AFRICAN AMERICAN > 60
--- NOTE | 2017-09-02 14:04 | CT ---
PROCEDURE: CT HEAD WITHOUT CONTRAST. HISTORY: seizure COMPARISON: 09/27/2016. TECHNIQUE: Axial computed tomography images were obtained through the head/brain without intravenous contrast. Radiation dose: Total exam DLP = 932 mGy-cm. This CT exam was performed using one or more of the following dose reduction techniques: Automated exposure control, adjustment of the mA and/or kV according to patient size, and/or use of iterative reconstruction technique. FINDINGS: HEMORRHAGE: No intracranial hemorrhage. BRAIN: Persistent right temporal parietal encephalomalacia. Persistent coarse calcification in the left basal ganglia. VENTRICLES: Unremarkable. No hydrocephalus. CALVARIUM: Old right parietal craniotomy defect. PARANASAL SINUSES: Prominent mucosal opacification of the bilateral maxillary sinuses with milder opacification of the ethmoid air cells. MASTOID AIR CELLS: Unremarkable as visualized. No inflammatory changes. OTHER FINDINGS: None. IMPRESSION: Prior right craniotomy with right temporal parietal encephalomalacia with mild atrophy. No acute intracranial abnormality. Sinus mucosal disease. Additional findings as above. If symptoms persists, consider correlation with MRI.
[2017-09-02] MEDS ORDERED: Lactated Ringer's 1,000 ML ONE (14:07)
--- NOTE | 2017-09-02 14:09 | RAD ---
Chest x-ray single frontal view History: Seizure. Comparison: 01/20/2016 Findings: Mild to moderate venous congestion. Right hilar prominence. Patchy increased markings at the left lung base. Large ectatic aorta. Mild cardiomegaly. Impression: Mild to moderate venous congestion. Right hilar prominence. Patchy increased markings at the left lung base. Large ectatic aorta. Mild cardiomegaly.
[2017-09-02 16:06] LABS: URINE BILIRUBIN NEGATIVE (NEGATIVE); URINE BLOOD NEGATIVE (NEGATIVE); URINE CLARITY Clear (Clear); URINE COLOR Yellow (YELLOW); URINE GLUCOSE (UA) NORMAL (Normal); URINE LEUKOCYTE ESTERASE NEG Leu/uL (Negative); URINE PROTEIN NEGATIVE (NEGATIVE); URINE UROBILINOGEN NORMAL mg/dL (0.2-1.0)
[2017-09-02 16:16] LABS: BARBITURATES, UR NEGATIVE (NEGATIVE); BENZODIAZEPINES, UR NEGATIVE (NEGATIVE); OPIATES, UR NEGATIVE (NEGATIVE); PHENCYCLIDINE, UR NEGATIVE (NEGATIVE)
[2017-09-03] MEDS ORDERED: Home Med 1 UNIT (Emtricitabine/Tenofovir (Tdf) [Truvada 100 Mg-150 Mg Tablet] 1 EACH) PO SCH (10:00)
[2017-09-03] MEDS: Emtricitabine-Tenofovir 200 mg-300 mg Tab PO SCH (12:51)
--- NOTE | 2017-09-04 05:17 | CP.PCM.HP ---
History of Present Illness - History of Present Illness History of Present Illness: CC: Seizure History Of Present Illness 46-year-old male, PMHx includes Seizures (on Keppra), and cocaine abuse, presents to the emergency department with complaints of two episodes of witnessed seizure today. Patient states he normally takes Keppra for his seizures. He denies any chest pain, sts he is taking Keppra every day. Patient denies any drug use. All other Hx limited due to post-ictal state. Present on Admission - Present on Admission Any Indicators Present on Admission: Yes Review of Systems - Review of Systems Systems not reviewed;Unavailable: Acuity of Condition - Constitutional Constitutional: Fatigue, Lethargy, Malaise - EENT Eyes: absent: As Per HPI, Blind Spots, Blurred Vision, Change in Vision, Decreased Night Vision, Diplopia, Discharge, Dry Eye, Exophthalmos, Floaters, Irritation, Itchy Eyes, Loss of Peripheral Vision, Pain, Photophobia, Requires Corrective Lenses, Sees Flashes, Spots in Vision, Tunnel Vision, Other Visual Disturbances, Loss of Vision, Other Nose/Mouth/Throat: absent: As Per HPI, Epistaxis, Nasal Congestion, Nasal Discharge, Nasal Obstruction, Nasal Trauma, Nose Pain, Post Nasal Drip, Sinus Pain, Sinus Pressure, Bleeding Gums, Change in Voice, Dental Pain, Dry Mouth, Dysphagia, Halitosis, Hoarsness, Lip Swelling, Mouth Lesions, Mouth Pain, Odynophagia, Sore Throat, Throat Swelling, Tongue Swelling, Facial Pain, Neck Pain, Neck Mass, Other - Cardiovascular Cardiovascular: absent: As Per HPI, Acrocyanosis, Chest Pain, Chest Pain at Rest , Chest Pain with Activity, Claudication, Diaphoresis, Dyspnea, Dyspnea on Exertion, Edema, Irregular Heart Rhythm, Pain Radiating to Arm/Neck/Jaw, Leg Edema, Leg Ulcers, Lightheadedness, Orthopnea, Palpitations, Paroxysmal Nocturnal Dyspnea, Pedal Edema, Radiating Pain, Rapid Heart Rate, Slow Heart Rate, Syncope, Other - Respiratory Respiratory: Dyspnea - Gastrointestinal Gastrointestinal: absent: As Per HPI, Abdominal Pain, Belching, Bloating, Change in Bowel Habits, Change in Stool Character, Coffee Ground Emesis, Constipation, Cramping, Diarrhea, Dyspepsia, Dysphagia, Early Satiety, Excessive Flatus, Fecal Incontinence, Heartburn, Hematemesis, Hematochezia, Loose Stools, Melena, Nausea, Odynophagia, Temesmus, Vomiting, Other - Genitourinary Genitourinary: absent: As Per HPI, Change in Urinary Stream, Difficulty Urinating, Dysuria, Flank Pain, Hematuria, Pyuria, Nocturia, Urinary Incontinence, Urinary Frequency, Urinary Hesitance, Urinary Urgency, Voiding Freq/Small Amts, Freq UTI, Hx Renal/Bladder Calculi, Hx /Renal Surgery, Bladder Distension, Other Past Patient History - Infectious Disease Hx of Infectious Diseases: None - Past Medical History & Family History Past Medical History?: Yes - Past Social History Smoking Status: Heavy Smoker > 10 Cigarettes Daily - CARDIAC Hx Hypertension: No - PULMONARY Hx Tuberculosis: No - NEUROLOGICAL Hx Seizures: Yes - HEENT Hx HEENT Problems: No - RENAL Hx Chronic Kidney Disease: No - ENDOCRINE/METABOLIC Hx Endocrine Disorders: No - HEMATOLOGICAL/ONCOLOGICAL Hx Human Immunodeficiency Virus (HIV): Yes - INTEGUMENTARY Hx Dermatological Problems: No - MUSCULOSKELETAL/RHEUMATOLOGICAL Hx Falls: No - GASTROINTESTINAL Hx Gastrointestinal Disorders: No - GENITOURINARY/GYNECOLOGICAL Hx Sexually Transmitted Disorders: Yes - PSYCHIATRIC Hx Depression: Yes Hx Substance Use: No - SURGICAL HISTORY Hx Surgeries: Yes Other/Comment: Brain tumor removal 2015 - ANESTHESIA Hx Anesthesia: Yes Hx Anesthesia Reactions: No Hx Malignant Hyperthermia: No Meds Allergies/Adverse Reactions: Allergies Allergy/AdvReac Type Severity Reaction Status Date / Time No Known Allergies Allergy Verified 09/28/16 01:43 Physical Exam - Constitutional Appears: No Acute Distress - Head Exam Head Exam: ATRAUMATIC, NORMAL INSPECTION, NORMOCEPHALIC - Eye Exam Eye Exam: EOMI, Normal appearance, PERRL Pupil Exam: NORMAL ACCOMODATION, PERRL - ENT Exam ENT Exam: Mucous Membranes Moist, Normal Exam - Neck Exam Neck exam: Positive for: Normal Inspection - Respiratory Exam Respiratory Exam: Decreased Breath Sounds - Cardiovascular Exam Cardiovascular Exam: REGULAR RHYTHM, +S1, +S2 - GI/Abdominal Exam GI & Abdominal Exam: Normal Bowel Sounds, Soft. absent: Tenderness - Rectal Exam Rectal Exam: Deferred - Exam Exam: Circumcision, NORMAL INSPECTION External exam: NORMAL EXTERNAL EXAM Speculum exam: NORMAL SPECULUM EXAM Bimanual exam: NORMAL BIMANUAL EXAM - Back Exam Back exam: NORMAL INSPECTION - Neurological Exam Neurological exam: Alert, CN II-XII Intact, Normal Gait, Oriented x3 - Psychiatric Exam Psychiatric exam: Normal Affect, Normal Mood - Skin Skin Exam: Dry, Intact, Normal Color, Warm Results - Vital Signs Recent Vital Signs: Last Vital Signs Temp 98.3 F 09/03/17 23:45 Pulse 76 09/03/17 23:45 Resp 20 09/03/17 23:45 BP 107/70 09/03/17 23:45 Pulse Ox 96 09/03/17 23:45 - Labs Result Diagrams: 09/02/17 13:31 09/02/17 13:31 Assessment & Plan (1) Recurrent seizures Status: Acute (2) HIV (human immunodeficiency virus infection) Status: Acute (3) Prophylactic measure Status: Acute
[2017-09-04] MEDS: Emtricitabine-Tenofovir 200 mg-300 mg Tab PO SCH (09:26)
[2017-09-04 09:28] VITALS: RESP 18; O2SAT 97
--- NOTE | 2017-09-04 14:09 | CP.PCM.CON ---
History of Present Illness - History of Present Illness History of Present Illness: 46 yr old male with a history of epilepsy who is admitted for breakthrough seizure, and also has a history of cocaine use. Mr. Ventura says that his seizure starts with left arm numbness and tingling and then he has a generalized seizure. He has very little time before he generalizes. His frequency is once a month, and he cannot identify triggers, but states compliance with his medications daily, which is Keppra 750 bid. PMH/PSH: HIV, history of epilepsy FH/SH: unemployed. All: nkda on exam: Normal neurological examination. MMS: Past Patient History - Infectious Disease Hx of Infectious Diseases: None - Past Medical History & Family History Past Medical History?: Yes - Past Social History Smoking Status: Heavy Smoker > 10 Cigarettes Daily - CARDIAC Hx Hypertension: No - PULMONARY Hx Tuberculosis: No - NEUROLOGICAL Hx Seizures: Yes - HEENT Hx HEENT Problems: No - RENAL Hx Chronic Kidney Disease: No - ENDOCRINE/METABOLIC Hx Endocrine Disorders: No - HEMATOLOGICAL/ONCOLOGICAL Hx Human Immunodeficiency Virus (HIV): Yes - INTEGUMENTARY Hx Dermatological Problems: No - MUSCULOSKELETAL/RHEUMATOLOGICAL Hx Falls: No - GASTROINTESTINAL Hx Gastrointestinal Disorders: No - GENITOURINARY/GYNECOLOGICAL Hx Sexually Transmitted Disorders: Yes - PSYCHIATRIC Hx Depression: Yes Hx Substance Use: No - SURGICAL HISTORY Hx Surgeries: Yes Other/Comment: Brain tumor removal 2015 - ANESTHESIA Hx Anesthesia: Yes Hx Anesthesia Reactions: No Hx Malignant Hyperthermia: No Meds Allergies/Adverse Reactions: Allergies Allergy/AdvReac Type Severity Reaction Status Date / Time No Known Allergies Allergy Verified 09/28/16 01:43 - Medications Medications: Current Medications Emtricitabine/Tenofovir (Truvada 200 Mg-300 Mg) [address] [facility] PRN Reason: Protocol Last Admin: 09/04/17 09:26 Dose: 1 tab Heparin Sodium (Porcine) (Heparin) 5,[address] [facility] Last Admin: 09/04/17 05:34 Dose: Not Given Levetiracetam (Keppra) 1,[address] [facility] Last Admin: 09/04/17 09:27 Dose: 1,000 mg Results - Vital Signs Recent Vital Signs: Last Vital Signs Temp 98.4 F 09/04/17 09:27 Pulse 64 09/04/17 09:27 Resp 18 09/04/17 09:27 BP 107/66 06/04/18 09:27 Pulse Ox 97 09/04/17 09:27 - Labs Result Diagrams: 09/02/17 13:31 09/02/17 13:31 Labs: Laboratory Results - last 24 hr 09/04/17 09/04/17 06:40 11:27 POC Glucose (mg/dL) 107 96 Assessment & Plan - Assessment and Plan (Free Text) Assessment: 46 yr old male with long standing epilepsy, s/p intracranial surgery, with frequent breakthrough seizures. I will increase his keppra to 1000 mg bid daily and he may be discharged home. Thank you Dr. shen
[2017-09-04 16:07] VITALS: BP 122/78; PULSE 77; TEMP 97.7
--- NOTE | 2017-09-05 09:40 | CP.PCM.DIS ---
Provider - Provider Date of Admission: 09/02/17 18:36 Attending physician: Franki Nguyen MD Time Spent in preparation of Discharge (in minutes): 45 Diagnosis - Discharge Diagnosis (1) Recurrent seizures Status: Acute (2) HIV (human immunodeficiency virus infection) Status: Acute (3) Prophylactic measure Status: Acute Hospital Course - Lab Results Lab Results: Most Recent Lab Values WBC 10.6 K/uL (4.8-10.8) 09/02/17 13:31 RBC 4.71 Mil/uL (4.40-5.90) 09/02/17 13:31 Hgb 13.7 g/dL (12.0-18.0) 09/02/17 13:31 Hct 39.9 % (35.0-51.0) 09/02/17 13:31 MCV 84.7 fL (80.0-94.0) D 09/02/17 13:31 MCH 29.0 pg (27.0-31.0) 09/02/17 13:31 MCHC 34.2 g/dL (33.0-37.0) 09/02/17 13:31 RDW 14.8 % (11.5-14.5) H 09/02/17 13:31 Plt Count 171 K/uL (130-400) 09/02/17 13:31 MPV 10.2 fL (7.2-11.7) 09/02/17 13:31 Neut % (Auto) 77.1 % (50.0-75.0) H 09/02/17 13:31 Lymph % (Auto) 15.4 % (20.0-40.0) L 09/02/17 13:31 Tucker % (Auto) 6.0 % (0.0-10.0) 09/02/17 13:31 Eos % (Auto) 1.1 % (0.0-4.0) 09/02/17 13:31 Baso % (Auto) 0.4 % (0.0-2.0) 09/02/17 13:31 Neut # (Auto) 8.2 K/uL (1.8-7.0) H 09/02/17 13:31 Lymph # (Auto) 1.6 K/uL (1.0-4.3) 09/02/17 13:31 Tucker # (Auto) 0.6 K/uL (0.0-0.8) 09/02/17 13:31 Eos # (Auto) 0.1 K/uL (0.0-0.7) 09/02/17 13:31 Baso # (Auto) 0.0 K/uL (0.0-0.2) 09/02/17 13:31 Sodium 142 mmol/L (132-148) 09/02/17 13:31 Potassium 4.3 mmol/L (3.6-5.2) 09/02/17 13:31 Chloride 106 mmol/L (98-107) 09/02/17 13:31 Carbon Dioxide 26 mmol/L (22-30) 09/02/17 13:31 Anion Gap 15 (10-20) 09/02/17 13:31 BUN 11 mg/dL (9-20) 09/02/17 13:31 Creatinine 0.8 mg/dL (0.8-1.5) 09/02/17 13:31 Est GFR ( Amer) > 60 09/02/17 13:31 Est GFR (Non-Af Amer) > 60 09/02/17 13:31 POC Glucose (mg/dL) 96 mg/dL (65-110) 09/04/17 11:27 Random Glucose 80 mg/dL (75-110) 09/02/17 13:31 Calcium 8.8 mg/dl (8.6-10.4) 09/02/17 13:31 Total Bilirubin 0.7 mg/dL (0.2-1.3) 09/02/17 13:31 AST 38 U/L (17-59) 09/02/17 13:31 ALT 31 U/L (21-72) 09/02/17 13:31 Alkaline Phosphatase 79 U/L (38-126) 09/02/17 13:31 Total Creatine Kinase 743 U/L (55-170) H 09/02/17 13:31 Total Protein 7.6 g/dL (6.3-8.3) 09/02/17 13:31 Albumin 4.2 g/dL (3.5-5.0) 09/02/17 13:31 Globulin 3.4 gm/dL (2.2-3.9) 09/02/17 13:31 Albumin/Globulin Ratio 1.2 (1.0-2.1) 09/02/17 13:31 Urine Color Yellow (YELLOW) 09/02/17 15:52 Urine Clarity Clear (Clear) 09/02/17 15:52 Urine pH 5.0 (5.0-8.0) 09/02/17 15:52 Ur Specific [place] 1.020 (1.003-1.030) 09/02/17 15:52 Urine Protein Negative mg/dL (NEGATIVE) 09/02/17 15:52 Urine Glucose (UA) Normal mg/dL (Normal) 09/02/17 15:52 Urine Ketones 1+ mg/dL (NEGATIVE) H 09/02/17 15:52 Urine Blood Negative (NEGATIVE) 09/02/17 15:52 Urine Nitrate Negative (NEGATIVE) 09/02/17 15:52 Urine Bilirubin Negative (NEGATIVE) 09/02/17 15:52 Urine Urobilinogen Normal mg/dL (0.2-1.0) 09/02/17 15:52 Ur Leukocyte Esterase Neg Seble/uL (Negative) 09/02/17 15:52 Urine WBC (Auto) 5 /hpf (0-5) 09/02/17 15:52 Urine RBC (Auto) < 1 /hpf (0-3) 09/02/17 15:52 Urine Opiates Screen Negative (NEGATIVE) 09/02/17 15:52 Urine Methadone Screen Negative (NEGATIVE) 09/02/17 15:52 Ur Barbiturates Screen Negative (NEGATIVE) 09/02/17 15:52 Ur Phencyclidine Scrn Negative (NEGATIVE) 09/02/17 15:52 Ur Amphetamines Screen Negative (NEGATIVE) 09/02/17 15:52 U Benzodiazepines Scrn Negative (NEGATIVE) 09/02/17 15:52 U Oth Cocaine Metabols Positive (NEGATIVE) H 09/02/17 15:52 U Cannabinoids Screen Negative (NEGATIVE) 09/02/17 15:52 Alcohol, Quantitative < 10 mg/dl (0-10) 09/02/17 13:31 - Hospital Course Hospital Course: 46 yr old male with long standing epilepsy, s/p intracranial surgery, with frequent breakthrough seizures. I will increase his keppra to 1000 mg bid daily and he may be discharged home. Discharge Exam - Head Exam Head Exam: ATRAUMATIC, NORMAL INSPECTION, NORMOCEPHALIC Discharge Plan - Follow Up Plan Condition: GOOD Disposition: HOME/ ROUTINE Instructions: Seizures, Adult (DC)
--- NOTE | 2017-09-05 13:42 | CARD ---
APPROVED REPORT EKG Measurement Heart [id number] <Conclusion> Normal sinus rhythm Normal ECG
== END 2017-09-04 19:15 | disposition home or self-care (01) ==
LOC: C.ER 11:44 → C.9E 18:36 → C.6T 19:21
PROVIDERS: ADMIT Internal Medicine; ATTEND Internal Medicine
DX: G40.909 Epilepsy, unspecified, not intractable, without status epilepticus (principal); F14.90 Cocaine use, unspecified, uncomplicated; B20 Human immunodeficiency virus [HIV] disease; Z87.891 Personal history of nicotine dependence
CPT/HCPCS: 70450; 71045; 80053; 80177; 80320; 80324; 80345; 80346; 80349; 80353; 80358; 80361; 81001; 82550; 82948; 83992; 85025; 96374; 99285; G0378; J1644; J2060; J7120

== ENCOUNTER 2017-09-20 11:54 | Inpatient (IN) | payer MEDICAID, OTHER ==
--- NOTE | 2017-09-20 12:50 | C.PDOC ---
History Of Present Illness 46yo male, presents to ER for evaluation of seizure x1 last night and this morning. Patient states he is non-compliant with his medications as he recently lost his health insurance. Otherwise no headache, weakness, nausea, vomiting, incontinence, tongue bite. No other medical complaints. Time Seen by Provider: 09/20/17 12:43 Chief Complaint (Nursing): Seizure History Per: Patient History/Exam Limitations: no limitations Number Of Seizures: Multiple (2) Length Of Seizures (Duration): Unknown Quality Of Seizure: Generalized Additional History Per: Patient Past Medical History Vital Signs: Last Vital Signs Temp 98.2 F 09/20/17 12:00 Pulse 89 09/20/17 12:36 Resp 24 09/20/17 12:36 BP 142/78 09/20/17 12:36 Pulse Ox 100 09/20/17 12:54 - Medical History PMH: Depression, HIV, Seizures, Sexually Transmitted Disease Denies: HTN, Chronic Kidney Disease Surgical History: No Surg Hx - [facility] Procedures GROUP PSYCHOTHERAPY (08/16/16) INDIVIDUAL PSYCHOTHERAPY, COGNITIVE-BEHAVIORAL (05/11/15) INDIVIDUAL PSYCHOTHERAPY, SUPPORTIVE (08/16/16) Family History: States: No Known Family Hx, Unknown Family Hx - Social History Hx Tobacco Use: Yes Hx Alcohol Use: No Hx Substance Use: No - Immunization History Hx Tetanus Toxoid Vaccination: No Hx Influenza Vaccination: No Hx Pneumococcal Vaccination: No Review Of Systems Review Of Systems: ROS cannot be obtained secondary to pt's inabilty to answer questions. (patient post-ictal) Genitourinary: Negative for: Incontinence Neurological: Positive for: Altered Mental Status Physical Exam - Physical Exam Appears: No Acute Distress Skin: Normal Color, Warm, Dry Head: Atraumatic, Normacephalic Eye(s): bilateral: PERRL Oral Mucosa: Moist Chest: Symmetrical Cardiovascular: Rhythm Regular Respiratory: Normal Breath Sounds Gastrointestinal/Abdominal: Soft, No Tenderness, No Mass, No Guarding, No Rebound Extremity: Normal ROM, No Pedal Edema, No Deformity Neurological/Psych: Normal Motor, Normal Sensation, Other (limited exam as patient is post-ictal) ED Course And Treatment O2 Sat by Pulse Oximetry: 100 (RA) Pulse Ox Interpretation: Normal Medical Decision Making Medical Decision Making: Patient had seizure in ER at 12:31PM and given Ativan 2mg IV. Patient currently post-ictal. Plan: -- Keppra 500mg IV Disposition - Disposition Disposition Time: 14:21 Condition: GOOD Forms: [employer] (Russian) - Clinical Impression Clinical Impression: Seizure Physician Patient Turnover Patient Signed Over To: Shandra Loera Handoff Comments: Pending RE-eval
[2017-09-20] MEDS ORDERED: levETIRAcetam 500 MG in Sodium Chloride 0.9% 100 ML IVPB ONE (13:00)
[2017-09-20] MEDS ORDERED: Sodium Chloride 0.9% 1,000 ML IV ONE (15:03)
[2017-09-20 15:22] LABS: BASO # 0.1 K/uL (0.0-0.2); BASO % 0.6 % (0.0-2.0); EOS # 0.1 K/uL (0.0-0.7); EOS % 0.5 % (0.0-4.0); LYMPH % 17.8 % (20.0-40.0); MEAN CELL VOLUME 84.9 fL (80.0-94.0); MEAN CORPUSCULAR HEMOGLOBIN 28.5 pg (27.0-31.0); MEAN CORPUSCULAR HGB CONC 33.5 g/dL (33.0-37.0); MEAN PLATELET VOLUME 10.4 fL (7.2-11.7); MONO # 0.6 K/uL (0.0-0.8); MONO % 5.2 % (0.0-10.0); NEUT # 8.5 K/uL (1.8-7.0); NEUT % 75.9 % (50.0-75.0); RBC 4.55 Mil/uL (4.40-5.90); RED CELL DISTRIBUTION WIDTH 15.1 % (11.5-14.5); WHITE BLOOD COUNT 11.2 K/uL (4.8-10.8)
[2017-09-20 15:43] LABS: ALB/GLOB RATIO 1.4 (1.0-2.1); ALBUMIN 4.4 g/dL (3.5-5.0); ALT/SGPT 54 U/L (21-72); AST/SGOT 45 U/L (17-59); BLOOD UREA NITROGEN 9 mg/dL (9-20); CALCIUM 8.9 mg/dl (8.6-10.4); GFR AFRICAN-AMERICAN > 60; GFR NON-AFRICAN AMERICAN > 60; LIPASE 64 U/L (23-300)
[2017-09-20 15:58] LABS: CK-MB 1.42 ng/mL (0.0-3.38)
[2017-09-20 17:02] LABS: BARBITURATES, UR NEGATIVE (NEGATIVE); BENZODIAZEPINES, UR NEGATIVE (NEGATIVE); OPIATES, UR NEGATIVE (NEGATIVE); PHENCYCLIDINE, UR NEGATIVE (NEGATIVE)
[2017-09-20 17:10] LABS: URINE BILIRUBIN NEGATIVE (NEGATIVE); URINE BLOOD NEGATIVE (NEGATIVE); URINE CLARITY Hazy (Clear); URINE COLOR Yellow (YELLOW); URINE GLUCOSE (UA) NORMAL (Normal); URINE LEUKOCYTE ESTERASE NEG Leu/uL (Negative); URINE PROTEIN 1+ mg/dL (NEGATIVE); URINE UROBILINOGEN NORMAL mg/dL (0.2-1.0)
[2017-09-20 17:16] VITALS: RESP 20
--- NOTE | 2017-09-20 23:43 | CP.PCM.HP ---
History of Present Illness - History of Present Illness History of Present Illness: History Of Present Illness 46yo male, presents to ER for evaluation of seizure x1 last night and this morning. Patient states he is non-compliant with his medications as he recently lost his health insurance. Otherwise no headache, weakness, nausea, vomiting, incontinence, tongue bite. No other medical complaints. Past Patient History - Infectious Disease Hx of Infectious Diseases: None - Past Medical History & Family History Past Medical History?: Yes - Past Social History Smoking Status: Current Some Days Smoker - CARDIAC Hx Hypertension: No - PULMONARY Hx Tuberculosis: No - NEUROLOGICAL Hx Seizures: Yes - HEENT Hx HEENT Problems: No - RENAL Hx Chronic Kidney Disease: No - ENDOCRINE/METABOLIC Hx Endocrine Disorders: No - HEMATOLOGICAL/ONCOLOGICAL Hx Human Immunodeficiency Virus (HIV): Yes - INTEGUMENTARY Hx Dermatological Problems: No - MUSCULOSKELETAL/RHEUMATOLOGICAL Hx Musculoskeletal Disorders: No Hx Falls: No - GASTROINTESTINAL Hx Gastrointestinal Disorders: No - GENITOURINARY/GYNECOLOGICAL Hx Sexually Transmitted Disorders: Yes - PSYCHIATRIC Hx Depression: Yes Hx Substance Use: Yes - SURGICAL HISTORY Hx Surgeries: Yes Other/Comment: Brain tumor removal 2015 - ANESTHESIA Hx Anesthesia: Yes Hx Anesthesia Reactions: No Hx Malignant Hyperthermia: No Meds Allergies/Adverse Reactions: Allergies Allergy/AdvReac Type Severity Reaction Status Date / Time No Known Allergies Allergy Verified 09/20/17 12:02 Results - Vital Signs Recent Vital Signs: Last Vital Signs Temp 99.4 F 09/20/17 17:00 Pulse 91 H 09/20/17 17:00 Resp 20 09/20/17 17:00 BP 129/73 09/20/17 17:00 Pulse Ox 97 09/20/17 17:00 - Labs Result Diagrams: 09/20/17 15:08 09/20/17 15:08 Labs: Laboratory Results - last 24 hr 09/20/17 09/20/17 09/20/17 15:08 15:08 16:34 WBC 11.2 H RBC 4.55 Hgb 13.0 Hct 38.6 MCV 84.9 MCH 28.5 MCHC 33.5 RDW 15.1 H Plt Count 180 MPV 10.4 Neut % (Auto) 75.9 H Lymph % (Auto) 17.8 L [place] % (Auto) 5.2 Eos % (Auto) 0.5 Baso % (Auto) 0.6 Neut # (Auto) 8.5 H Lymph # (Auto) 2.0 [place] # (Auto) 0.6 Eos # (Auto) 0.1 Baso # (Auto) 0.1 Sodium 140 Potassium 3.8 Chloride 104 Carbon Dioxide 27 Anion Gap 13 BUN 9 Creatinine 0.9 Est GFR ( Amer) > 60 Est GFR (Non-Af Amer) > 60 Random Glucose 95 Calcium 8.9 Total Bilirubin 0.7 AST 45 ALT 54 Alkaline Phosphatase 80 CK-MB (Mass) 1.42 Total Protein 7.5 Albumin 4.4 Globulin 3.2 Albumin/Globulin Ratio 1.4 Lipase 64 Urine Color Yellow Urine Clarity Hazy Urine pH 5.0 Ur Specific [place] 1.019 Urine Protein 1+ H Urine Glucose (UA) Normal Urine Ketones Negative Urine Blood Negative Urine Nitrate Negative Urine Bilirubin Negative Urine Urobilinogen Normal Ur Leukocyte Esterase Neg Urine WBC (Auto) < 1 Urine Opiates Screen Urine Methadone Screen Ur Barbiturates Screen Ur Phencyclidine Scrn Ur Amphetamines Screen U Benzodiazepines Scrn U Oth Cocaine Metabols U Cannabinoids Screen 09/20/17 16:34 WBC RBC Hgb Hct MCV MCH MCHC RDW Plt Count MPV Neut % (Auto) Lymph % (Auto) [place] % (Auto) Eos % (Auto) Baso % (Auto) Neut # (Auto) Lymph # (Auto) [place] # (Auto) Eos # (Auto) Baso # (Auto) Sodium Potassium Chloride Carbon Dioxide Anion Gap BUN Creatinine Est GFR ( Amer) Est GFR (Non-Af Amer) Random Glucose Calcium Total Bilirubin AST ALT Alkaline Phosphatase CK-MB (Mass) Total Protein Albumin Globulin Albumin/Globulin Ratio Lipase Urine Color Urine Clarity Urine pH Ur Specific [place] Urine Protein Urine Glucose (UA) Urine Ketones Urine Blood Urine Nitrate Urine Bilirubin Urine Urobilinogen Ur Leukocyte Esterase Urine WBC (Auto) Urine Opiates Screen Negative Urine Methadone Screen Negative Ur Barbiturates Screen Negative Ur Phencyclidine Scrn Negative Ur Amphetamines Screen Negative U Benzodiazepines Scrn Negative U Oth Cocaine Metabols Negative U Cannabinoids Screen Negative
[2017-09-21] MEDS: Emtricitabine-Tenofovir 200 mg-300 mg Tab PO SCH (09:34)
[2017-09-21] MEDS: Enoxaparin 40 mg Syringe SC SCH (09:35)
--- NOTE | 2017-09-21 16:17 | CON ---
DATE: 09/21/2017 CHIEF COMPLAINT: Seizure. CURRENT HISTORY OF PRESENT ILLNESS: This is a 46-year-old man with history of epilepsy, was admitted for breakthrough seizure and a history of cocaine use in the past. He has had history of craniotomy on the right temporoparietal area right temporoparietal area seen. He had a breakthrough seizure due to the noncompliance of medication and had missed some dosage and lost insurance, but now he is back in the hospital for breakthrough seizure. He describes that his left arm becomes numb and tingling and has generalized tonic clonic seizure after he has the postictal phenomena. His Keppra was recently increased on 09/02/2017 from 750 p.o. b.i.d. to [address] of the head showed no acute cranial abnormality, just chronic encephalomalacia in the right temporoparietal lobe, which is consistent with likely the rise of the seizure focus. PAST MEDICAL HISTORY: As above. ALLERGIES: NO KNOWN DRUG ALLERGIES. SOCIAL HISTORY: He is an occasional smoker. History of cocaine use in the past. Occasional EtOH abuse. REVIEW OF SYSTEMS: A 14-point review of systems negative except in the HPI. FAMILY HISTORY: Noncontributory. MEDICATIONS: Reviewed by nurse reconciliation sheet. PHYSICAL EXAMINATION: VITAL SIGNS: Temperature 97.9, pulse rate 72, blood pressure 117/73, respiratory rate 20, oxygen saturation 97% via room air. GENERAL: The patient is sitting up in bed, in no acute distress. HEENT: Atraumatic, normocephalic. PERRLA. Extraocular muscles are intact. NECK: Supple. No JVD. No adenopathy noted. LUNGS: Clear to auscultation. No adventitious sounds. HEART: S1 and S2. Normal rate and rhythm. No murmur, rubs, or gallops. ABDOMEN: Soft, nontender, nondistended. Bowel sounds are present. EXTREMITIES: No clubbing. No cyanosis. Peripheral pulses are 2+ bilaterally. NEUROLOGIC: The patient is alert and oriented to person, place, month, and year. Speech is fluent without any errors. Cranial nerves II through XII are intact. Motor exam: Moves all extremities equally. No pronator drift seen. Sensory exam: Light touch, pinprick, proprioception and, vibration are intact. DTRs are 2+ throughout. Coordination: [id number] intact. No dysmetria noted. Gait is deferred for now. LABORATORY DATA: Sodium is 140, potassium 3.9, chloride 104, carbon dioxide 27, BUN of 9, creatinine of 0.9, random glucose of 95. CURRENT ASSESSMENT AND PLAN: This is a 46-year-old man with history of human immunodeficiency virus with longstanding epilepsy status post intracranial surgery with breakthrough seizures, whose Keppra was recently increased on 09/02/2017 from 750 p.o. b.i.d. to 1000 p.o. b.i.d. and was discharged home, was noncompliant with the medication due to the loss of insurance, but has regained his insurance. At this time, he has an episode of breakthrough seizure. At this time, we will recommend, 1. To continue the current dose of 1000 mg of Keppra p.o. b.i.d. 2. An electroencephalogram. 3. Needs to follow up with the Neurology as an outpatient and possibly need ambulatory electroencephalogram monitor to see the rise of focus of the seizure. 4. Advised avoid any polysubstance abuse and advised sleep hygiene and continue current and present medical management. Thank you for this consult. Shlomo Elam MD
[2017-09-22 08:45] VITALS: BP 113/73; PULSE 67; TEMP 97.7; O2SAT 98
[2017-09-22] MEDS: Enoxaparin 40 mg Syringe SC SCH (09:59)
[2017-09-22] MEDS: Emtricitabine-Tenofovir 200 mg-300 mg Tab PO SCH (09:59)
--- NOTE | 2017-09-22 10:40 | CP.PCM.PN ---
Subjective - Date & Time of Evaluation Date of Evaluation: 09/21/17 Time of Evaluation: 19:40 - Subjective Subjective: Pt seen & evaluated at bedside, Objective - Vital Signs/Intake and Output Vital Signs (last 24 hours): Temp Pulse Resp BP Pulse Ox 97.7 F 67 20 113/73 98 09/22/17 08:00 09/22/17 08:00 09/22/17 08:00 09/22/17 08:00 09/22/17 08:00 Intake and Output: 09/22/17 09/22/17 06:59 18:59 Intake Total 360 250 Balance 360 250 - Medications Medications: Current Medications Acetaminophen (Tylenol 325mg Tab) 650 mg PO Q6 PRN PRN Reason: Headache Last Admin: 09/21/17 19:26 Dose: 650 mg Emtricitabine/Tenofovir (Truvada 200 Mg-300 Mg) 1 tab PO DAILY [facility] Last Admin: 09/22/17 09:59 Dose: 1 tab Enoxaparin Sodium (Lovenox) 40 mg SC DAILY [facility] Last Admin: 09/22/17 09:59 Dose: 40 mg Levetiracetam (Keppra) 1,000 mg PO BID [facility] Last Admin: 09/22/17 10:00 Dose: 1,000 mg - Labs Labs: 09/20/17 15:08 09/20/17 15:08
--- NOTE | 2017-09-22 17:59 | CP.PCM.PN ---
Subjective - Date & Time of Evaluation Date of Evaluation: 09/22/17 Time of Evaluation: 10:00 - Subjective Subjective: Alert, oriented x3, no seizure episodes or distress noted, NAD. Objective - Vital Signs/Intake and Output Vital Signs (last 24 hours): Temp Pulse Resp BP Pulse Ox 97.7 F 67 20 113/73 98 09/22/17 08:00 09/22/17 08:00 09/22/17 08:00 09/22/17 08:00 09/22/17 08:00 Intake and Output: 09/22/17 09/22/17 06:59 18:59 Intake Total 360 730 Balance 360 730 - Labs Labs: 09/20/17 15:08 09/20/17 15:08 Assessment and Plan - Assessment and Plan (Free Text) Plan: Patient admitted with seizure disorder non compliant with meds, ran out of keppra as per patient. Seen and examined. Alert and orientedx3, denies any complaints, had EEG done this am. Cleared by the neurologyst, discussed with DR Nguyen, plan to discharge home on keppra 1000mg po bid. one month supply given from the pharmacy, advised to follow up with the neurologyst regularly.
--- NOTE | 2017-09-22 18:04 | CP.PCM.DIS ---
Provider - Provider Date of Admission: 09/20/17 15:15 Attending physician: Franki Nguyen MD Time Spent in preparation of Discharge (in minutes): 45 Hospital Course - Lab Results Lab Results: Most Recent Lab Values WBC 11.2 K/uL (4.8-10.8) H 09/20/17 15:08 RBC 4.55 Mil/uL (4.40-5.90) 09/20/17 15:08 Hgb 13.0 g/dL (12.0-18.0) 09/20/17 15:08 Hct 38.6 % (35.0-51.0) 09/20/17 15:08 MCV 84.9 fL (80.0-94.0) 09/20/17 15:08 MCH 28.5 pg (27.0-31.0) 09/20/17 15:08 MCHC 33.5 g/dL (33.0-37.0) 09/20/17 15:08 RDW 15.1 % (11.5-14.5) H 09/20/17 15:08 Plt Count 180 K/uL (130-400) 09/20/17 15:08 MPV 10.4 fL (7.2-11.7) 09/20/17 15:08 Neut % (Auto) 75.9 % (50.0-75.0) H 09/20/17 15:08 Lymph % (Auto) 17.8 % (20.0-40.0) L 09/20/17 15:08 [place] % (Auto) 5.2 % (0.0-10.0) 09/20/17 15:08 Eos % (Auto) 0.5 % (0.0-4.0) 09/20/17 15:08 Baso % (Auto) 0.6 % (0.0-2.0) 09/20/17 15:08 Neut # (Auto) 8.5 K/uL (1.8-7.0) H 09/20/17 15:08 Lymph # (Auto) 2.0 K/uL (1.0-4.3) 09/20/17 15:08 [place] # (Auto) 0.6 K/uL (0.0-0.8) 09/20/17 15:08 Eos # (Auto) 0.1 K/uL (0.0-0.7) 09/20/17 15:08 Baso # (Auto) 0.1 K/uL (0.0-0.2) 09/20/17 15:08 Sodium 140 mmol/L (132-148) 09/20/17 15:08 Potassium 3.8 mmol/L (3.6-5.2) 09/20/17 15:08 Chloride 104 mmol/L (98-107) 09/20/17 15:08 Carbon Dioxide 27 mmol/L (22-30) 09/20/17 15:08 Anion Gap 13 (10-20) 09/20/17 15:08 BUN 9 mg/dL (9-20) 09/20/17 15:08 Creatinine 0.9 mg/dL (0.8-1.5) 09/20/17 15:08 Est GFR ( Amer) > 60 09/20/17 15:08 Est GFR (Non-Af Amer) > 60 09/20/17 15:08 Random Glucose 95 mg/dL (75-110) 09/20/17 15:08 Calcium 8.9 mg/dl (8.6-10.4) 09/20/17 15:08 Total Bilirubin 0.7 mg/dL (0.2-1.3) 09/20/17 15:08 AST 45 U/L (17-59) 09/20/17 15:08 ALT 54 U/L (21-72) 09/20/17 15:08 Alkaline Phosphatase 80 U/L (38-126) 09/20/17 15:08 CK-MB (Mass) 1.42 ng/mL (0.0-3.38) 09/20/17 15:08 Total Protein 7.5 g/dL (6.3-8.3) 09/20/17 15:08 Albumin 4.4 g/dL (3.5-5.0) 09/20/17 15:08 Globulin 3.2 gm/dL (2.2-3.9) 09/20/17 15:08 Albumin/Globulin Ratio 1.4 (1.0-2.1) 09/20/17 15:08 Lipase 64 U/L (23-300) 09/20/17 15:08 Urine Color Yellow (YELLOW) 09/20/17 16:34 Urine Clarity Hazy (Clear) 09/20/17 16:34 Urine pH 5.0 (5.0-8.0) 09/20/17 16:34 Ur Specific [place] 1.019 (1.003-1.030) 09/20/17 16:34 Urine Protein 1+ mg/dL (NEGATIVE) H 09/20/17 16:34 Urine Glucose (UA) Normal mg/dL (Normal) 09/20/17 16:34 Urine Ketones Negative mg/dL (NEGATIVE) 09/20/17 16:34 Urine Blood Negative (NEGATIVE) 09/20/17 16:34 Urine Nitrate Negative (NEGATIVE) 09/20/17 16:34 Urine Bilirubin Negative (NEGATIVE) 09/20/17 16:34 Urine Urobilinogen Normal mg/dL (0.2-1.0) 09/20/17 16:34 Ur Leukocyte Esterase Neg [place]/uL (Negative) 09/20/17 16:34 Urine WBC (Auto) < 1 /hpf (0-5) 09/20/17 16:34 Urine Opiates Screen Negative (NEGATIVE) 09/20/17 16:34 Urine Methadone Screen Negative (NEGATIVE) 09/20/17 16:34 Ur Barbiturates Screen Negative (NEGATIVE) 09/20/17 16:34 Ur Phencyclidine Scrn Negative (NEGATIVE) 09/20/17 16:34 Ur Amphetamines Screen Negative (NEGATIVE) 09/20/17 16:34 U Benzodiazepines Scrn Negative (NEGATIVE) 09/20/17 16:34 U Oth Cocaine Metabols Negative (NEGATIVE) 09/20/17 16:34 U Cannabinoids Screen Negative (NEGATIVE) 09/20/17 16:34 - Hospital Course Hospital Course: Patient admitted with seizure disorder non compliant with meds, ran out of keppra as per patient. Seen and examined. Alert and orientedx3, denies any complaints, had EEG done this am. Cleared by the neurologyst, plan to discharge home on keppra 1000mg po bid. one month supply given from the pharmacy, advised to follow up with the neurologyst regularly. Discharge Plan - Discharge Medications Prescriptions: levETIRAcetam [Keppra] 1,000 mg PO BID 30 Days tab - Follow Up Plan Condition: STABLE Disposition: HOME/ ROUTINE Instructions: Seizures, Adult (DC) Additional Instructions: follow up with the neurologyst in the office regularly and continue with keppra 100mg po bid follow up with PMD in 1 week Referrals: Franki Nguyen MD [Staff Provider] -
== END 2017-09-22 14:58 | disposition home or self-care (01) | DRG 714 ==
LOC: C.ER 11:54 → C.9E 15:15 → C.3T 16:15
PROVIDERS: ADMIT Internal Medicine; ATTEND Internal Medicine
DX: G40.409 Other generalized epilepsy and epileptic syndromes, not intractable, without status epilepticus (principal); B20 Human immunodeficiency virus [HIV] disease; Z91.14 Patient's other noncompliance with medication regimen; F17.200 Nicotine dependence, unspecified, uncomplicated; F10.10 Alcohol abuse, uncomplicated

== ENCOUNTER 2018-02-28 10:01 | Emergency (ER) | payer OTHER ==
[2018-02-28 10:02] VITALS: BMI 32.3
[2018-02-28 10:29] VITALS: TEMP 98.6
[2018-02-28] MEDS ORDERED: levETIRAcetam 500 MG in Sodium Chloride 0.9% 100 ML IVPB STA (10:33)
[2018-02-28] MEDS ORDERED: Sodium Chloride 0.9% 1,000 ML IV STA (10:33)
--- NOTE | 2018-02-28 10:50 | C.PDOC ---
History Of Present Illness 47 year old male with PMHx of seizures and HIV presents to the ED BIBA for generalized witnessed seizure at home. Patient states he ran out of Keppra medications and missed one dose. Complains of headache, but denies any tongue biting, loss of bowel or bladder control, head trauma, nausea, vomiting, shortness of breath, chest pain. Chief Complaint (Nursing): Seizure History Per: Patient, EMS History/Exam Limitations: no limitations Recent Seizure Activity Began: Just Before Arrival Number Of Seizures: One Length Of Seizures (Duration): Unknown Quality Of Seizure: Generalized Precipitating Factor(s): Missed Dose Of Anti-seizure Medication Past Medical History Reviewed: Historical Data, Nursing Documentation, Vital Signs Vital Signs: Last Vital Signs Temp 98.6 F 02/28/18 10:29 Pulse 74 02/28/18 10:29 Resp 18 02/28/18 10:29 BP 121/81 02/28/18 10:29 Pulse Ox 98 02/28/18 10:29 - Medical History PMH: Depression, HIV, Seizures, Sexually Transmitted Disease Denies: HTN, Chronic Kidney Disease Other Surgeries: Hx of surgeries - [facility] Procedures GROUP PSYCHOTHERAPY (08/16/16) INDIVIDUAL PSYCHOTHERAPY, COGNITIVE-BEHAVIORAL (05/11/15) INDIVIDUAL PSYCHOTHERAPY, SUPPORTIVE (08/16/16) Family History: States: No Known Family Hx - Social History Hx Tobacco Use: Yes Hx Alcohol Use: No Hx Substance Use: Yes - Immunization History Hx Tetanus Toxoid Vaccination: No Hx Influenza Vaccination: Yes Hx Pneumococcal Vaccination: No Review Of Systems Except As Marked, All Systems Reviewed And Found Negative. Constitutional: Negative for: Fever, Chills Cardiovascular: Negative for: Chest Pain Respiratory: Negative for: Shortness of Breath Gastrointestinal: Negative for: Nausea, Vomiting Genitourinary: Negative for: Incontinence Neurological: Positive for: Seizures, Headache Physical Exam - Physical Exam Appears: Non-toxic, No Acute Distress Skin: Warm, Dry, No Rash Head: Atraumatic, Normacephalic Eye(s): bilateral: Normal Inspection, PERRL, EOMI Nose: Normal Oral Mucosa: Moist Tongue: No Bite Teeth: Normal Dentition Gingiva: Normal Appearing Neck: Normal ROM, Supple Chest: Symmetrical Cardiovascular: Rhythm Regular Respiratory: No Rales, No Rhonchi, No Wheezing Gastrointestinal/Abdominal: Soft, No Tenderness Extremity: Normal ROM Neurological/Psych: Oriented x3, Normal Speech, Normal Motor, Normal Sensation, Normal Reflexes Gait: Steady ED Course And Treatment - Laboratory Results Result Diagrams: 02/28/18 10:49 02/28/18 10:49 O2 Sat by Pulse Oximetry: 98 (RA) Pulse Ox Interpretation: Normal - Other Rad CXR X-Ray: Viewed By Me, Read By Radiologist Interpretation: Accession No. : [id number]. Patient Name / ID : BARBRA COLON / [id number]. Exam Date : 02/28/2018 10:39:46 ( Approved ). Study Comment : Sex / Age : M / 47Y. Creator : Cristal Benavides MD. Dictator : Cristal Benavides MD. Firmware Test Engineer : Freelance Recruiter : Cristal Benavides MD. Approver2 : Report Date : 02/28/2018 11:12:12. My Comment : . HISTORY: Seizure. COMPARISON: Chest x-ray performed 09/02/17. TECHNIQUE: Chest, one view. FINDINGS: LUNGS: Hypoinflation. Right hilar prominence. No focal consolidation. Please note that chest x-ray has limited sensitivity for the d etection of pulmonary masses. PLEURA: No significant pleural effusion identified. No definite pneumothorax . CARDIOVASCULAR: Borderline cardiomegaly. No significant atherosclerotic calcification present. OSSEOUS STRUCTURES: No acute osseous abnormality identified. VISUALIZED UPPER ABDOMEN: Unremarkable. OTHER FINDINGS: None. IMPRESSION: Hypoinflation. Right hilar prominence. No focal consolidation. - CT Scan/US CT Head Other Rad Studies (CT/US): Read By Radiologist, Radiology Report Reviewed CT/US Interpretation: Accession No. : [id number]. Patient Name / ID : BARBRA COLON / [id number]. Exam Date : 02/28/2018 11:12:31 ( Approved ). Study Comment : Sex / Age : M / 47Y. Creator : Jesenia Ramírez. Dictator : Cristal Benavides MD. Firmware Test Engineer : Freelance Recruiter : Cristal Benavides MD. A pprover2 : Report Date : 02/28/2018 11:39:54. My Comment : . Date of service: 02/28/2018. PROCEDURE: CT HEAD WITHOUT CONTRAST. HISTORY: seizure. COMPARISON: Noncontrast head CT performed 12/10/17. TECHNIQUE: Axial computed tomography images were obtained through the head/brain without intravenous contrast. Radiation dose: Total exam DLP = 1057.19 mGy-cm. This CT exam was performed using one or more of the following dose reduction techniques: Automated exposure control, adjustment of the mA and/or kV according to patient size, and/or use of iterative reconstruction technique. FINDINGS: HEMORRHAGE: No intracranial hemorrhage. BRAIN: Diffuse atrophy with prominence of the ventricles and sulci noted. No mass effect or edema. Right temporal encephalomalacia re-identified. Mild scattered white matter hypodensities, which are nonspecific, but often seen with chronic microvascular ischemic disease. Please note that MRI with diffusion imaging is more sensitive in the detection of acute ischemic event. VENTRICLES: No hydrocephalus. CALVARIUM: Craniotomy. PARANASAL SINUSES: Partial opacification of the right maxillary sinus. The remainder of the visualized paranasal sinuses appear clear. MASTOID AIR CELLS: Unremarkable as visualized. No inflammatory changes. OTHER FINDINGS: None. IMPRESSION: Right temporal encephalomalacia. Partial opacification the right maxillary sinus; correlate for sinusitis. Additional findings as above. Progress Note: Patient had a seizure while in ED, Ativan IV ordered, keppra IV continues. Patient was signed out, needs to be re-eval and dispo Medical Decision Making Medical Decision Making: Plan - Head CT - EKG - Bloodwork - CXR - Keppra - IV fluids - UA Disposition - Disposition Disposition Time: 14:40 Condition: FAIR Forms: [employer] (Kazakh) - Clinical Impression Clinical Impression: Seizure - PA / STONE GLUER / Resident Statement MD/DO has reviewed & agrees with the documentation as recorded. - Scribe Statement The provider has reviewed the documentation as recorded by the Scribe Ria Vargas All medical record entries made by the Leslieibe were at my direction and personally dictated by me. I have reviewed the chart and agree that the record accurately reflects my personal performance of the history, physical exam, medical decision making, and the department course for this patient. I have also personally directed, reviewed, and agree with the discharge instructions and disposition. Physician Patient Turnover Patient Signed Over To: Dejah Mccullough Handoff Comments: Re-eval and dispo
[2018-02-28 10:53] LABS: BASO # 0.1 K/uL (0.0-0.2); BASO % 0.8 % (0.0-2.0); EOS # 0.3 K/uL (0.0-0.7); EOS % 2.5 % (0.0-4.0); HEMOGLOBIN 14.8 g/dL (12.0-18.0); LYMPH # 2.3 K/uL (1.0-4.3); LYMPH % 20.8 % (20.0-40.0); MEAN CELL VOLUME 89.6 fL (80.0-94.0); MEAN CORPUSCULAR HEMOGLOBIN 30.2 pg (27.0-31.0); MEAN CORPUSCULAR HGB CONC 33.6 g/dL (33.0-37.0); MEAN PLATELET VOLUME 9.7 fL (7.2-11.7); MONO # 0.8 K/uL (0.0-0.8); MONO % 6.9 % (0.0-10.0); NEUT # 7.6 K/uL (1.8-7.0); RBC 4.91 Mil/uL (4.40-5.90); RED CELL DISTRIBUTION WIDTH 15.4 % (11.5-14.5)
[2018-02-28 11:05] LABS: BLOOD UREA NITROGEN 13 mg/dL (9-20); CALCIUM 8.8 mg/dl (8.6-10.4); GFR NON-AFRICAN AMERICAN > 60
[2018-02-28 11:07] LABS: ALB/GLOB RATIO 1.4 (1.0-2.1); ALBUMIN 4.5 g/dL (3.5-5.0); ALT/SGPT 44 U/L (21-72); AST/SGOT 51 U/L (17-59)
--- NOTE | 2018-02-28 11:16 | RAD ---
HISTORY: Seizure COMPARISON: Chest x-ray performed 09/02/17 TECHNIQUE: Chest, one view. FINDINGS: LUNGS: Hypoinflation. Right hilar prominence. No focal consolidation. Please note that chest x-ray has limited sensitivity for the detection of pulmonary masses. PLEURA: No significant pleural effusion identified. No definite pneumothorax . CARDIOVASCULAR: Borderline cardiomegaly. No significant atherosclerotic calcification present. OSSEOUS STRUCTURES: No acute osseous abnormality identified. VISUALIZED UPPER ABDOMEN: Unremarkable. OTHER FINDINGS: None. IMPRESSION: Hypoinflation. Right hilar prominence. No focal consolidation.
--- NOTE | 2018-02-28 11:56 | CT ---
Date of service: 02/28/2018 PROCEDURE: CT HEAD WITHOUT CONTRAST. HISTORY: seizure COMPARISON: Noncontrast head CT performed 12/10/17 TECHNIQUE: Axial computed tomography images were obtained through the head/brain without intravenous contrast. Radiation dose: Total exam DLP = 1057.19 mGy-cm. This CT exam was performed using one or more of the following dose reduction techniques: Automated exposure control, adjustment of the mA and/or kV according to patient size, and/or use of iterative reconstruction technique. FINDINGS: HEMORRHAGE: No intracranial hemorrhage. BRAIN: Diffuse atrophy with prominence of the ventricles and sulci noted. No mass effect or edema. Right temporal encephalomalacia re-identified. Mild scattered white matter hypodensities, which are nonspecific, but often seen with chronic microvascular ischemic disease. Please note that MRI with diffusion imaging is more sensitive in the detection of acute ischemic event. VENTRICLES: No hydrocephalus. CALVARIUM: Craniotomy. PARANASAL SINUSES: Partial opacification of the right maxillary sinus. The remainder of the visualized paranasal sinuses appear clear. MASTOID AIR CELLS: Unremarkable as visualized. No inflammatory changes. OTHER FINDINGS: None. IMPRESSION: Right temporal encephalomalacia. Partial opacification the right maxillary sinus; correlate for sinusitis. Additional findings as above.
[2018-02-28] MEDS ORDERED: Sodium Chloride 0.9% 1,000 ML IV ONE (15:51)
[2018-02-28 16:37] VITALS: BP 120/77; PULSE 77; RESP 18; O2SAT 99
[2018-02-28 16:43] LABS: URINE BILIRUBIN NEGATIVE (NEGATIVE); URINE BLOOD NEGATIVE (NEGATIVE); URINE CLARITY Clear (Clear); URINE COLOR Yellow (YELLOW); URINE GLUCOSE (UA) NORMAL (Normal); URINE LEUKOCYTE ESTERASE NEG Leu/uL (Negative); URINE PROTEIN NEGATIVE (NEGATIVE); URINE UROBILINOGEN NORMAL mg/dL (0.2-1.0)
[2018-02-28 17:31] LABS: BARBITURATES, UR NEGATIVE (NEGATIVE); BENZODIAZEPINES, UR NEGATIVE (NEGATIVE); OPIATES, UR NEGATIVE (NEGATIVE); PHENCYCLIDINE, UR NEGATIVE (NEGATIVE)
== END 2018-02-28 19:59 | disposition home or self-care (01) ==
LOC: C.ER 10:01
DX: R56.9 Unspecified convulsions (principal); F32.9 Major depressive disorder, single episode, unspecified
CPT/HCPCS: 70450; 71045; 80053; 80320; 80324; 80345; 80346; 80349; 80353; 80358; 80361; 81001; 82550; 83992; 85025; 96361; 96365; 96375; 99285; J1885; J1953; J2060; J7030

== ENCOUNTER 2018-04-23 19:22 | Emergency (ER) | payer OTHER ==
[2018-04-23 19:23] VITALS: BMI 32.3
--- NOTE | 2018-04-23 19:52 | C.PDOC ---
History Of Present Illness Patient is a 47 year old male alyssa, with a PMHx of seizure disorder, who presents to the ED after suffering a seizure at home. Patient states he takes Keppra 1000mg BID, but ran out yesterday because he did not have a ride to get his pending prescription form [place]. Patient previously claimed that he takes 500mg BID. Patient denies any dizziness, palpitations, SOB, CP, nausea, vomiting, or diarrhea. Time Seen by Provider: 04/23/18 19:40 Chief Complaint (Nursing): Seizure History Per: Patient, EMS History/Exam Limitations: no limitations Recent Seizure Activity Began: Just Before Arrival Recent travel outside of the [place]: No Additional History Per: Patient, EMS Past Medical History Reviewed: Historical Data, Nursing Documentation, Vital Signs Vital Signs: Last Vital Signs Temp 98 F 04/23/18 19:32 Pulse 79 04/23/18 19:32 Resp 16 04/23/18 19:32 BP 123/83 04/23/18 19:32 Pulse Ox 97 04/23/18 19:32 - Medical History PMH: Depression, HIV, Seizures, Sexually Transmitted Disease Denies: HTN, Chronic Kidney Disease Surgical History: No Surg Hx - [facility] Procedures GROUP PSYCHOTHERAPY (08/16/16) INDIVIDUAL PSYCHOTHERAPY, COGNITIVE-BEHAVIORAL (05/11/15) INDIVIDUAL PSYCHOTHERAPY, SUPPORTIVE (08/16/16) Family History: States: Unknown Family Hx - Social History Hx Tobacco Use: Yes Hx Alcohol Use: Yes Hx Substance Use: Yes - Immunization History Hx Tetanus Toxoid Vaccination: No Hx Influenza Vaccination: Yes Hx Pneumococcal Vaccination: No Review Of Systems Cardiovascular: Negative for: Chest Pain, Palpitations Respiratory: Negative for: Shortness of Breath Gastrointestinal: Negative for: Nausea, Vomiting, Diarrhea Neurological: Negative for: Dizziness Physical Exam - Physical Exam Appears: Non-toxic, No Acute Distress, Other (tall athletic black male ) Skin: Normal Color, Warm, Dry Head: Atraumatic, Normacephalic Oral Mucosa: Moist Neck: Normal ROM, Supple Chest: Symmetrical, No Deformity Cardiovascular: Rhythm Regular, No Murmur Respiratory: Normal Breath Sounds, No Rales, No Rhonchi, No Wheezing Gastrointestinal/Abdominal: Soft, No Tenderness, No Guarding, No Rebound Extremity: Normal ROM Neurological/Psych: Oriented x3, Normal Speech, Normal Cognition ED Course And Treatment O2 Sat by Pulse Oximetry: 97 (on RA) Pulse Ox Interpretation: Normal Medical Decision Making Medical Decision Making: typical seizure this am and this evening, alyssa yesterday ran out of Keppra 500 PO BID, has refill available in [place], failed transportation to [place] to retrieve normal exam Keppra PO and MOtrin PO defer w/u with informed consent. 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 Instructions: Seizures, Adult (DC) Forms: [facility] ([place]) - Clinical Impression Clinical Impression: Seizure - Scribe Statement The provider has reviewed the documentation as recorded by the Scribdalia Sahu All medical record entries made by the Scribe were at my direction and personally dictated by me. I have reviewed the chart and agree that the record accurately reflects my personal performance of the history, physical exam, medical decision making, and the department course for this patient. I have also personally directed, reviewed, and agree with the discharge instructions and disposition.
[2018-04-23 20:19] VITALS: BP 131/89; PULSE 74; RESP 18; TEMP 98
[2018-04-23 20:51] VITALS: O2SAT 97
== END 2018-04-23 20:20 | disposition home or self-care (01) ==
LOC: C.ER 19:22
DX: G40.909 Epilepsy, unspecified, not intractable, without status epilepticus (principal)